=== PATIENT | female | born 1955 | race Caucasian/White ===

== ENCOUNTER → 2022-02-16 13:41 | Outpatient (BNVA) | payer MEDICARE, SELFPAY | PROVIDERS: PCP Student in an Organized Health Care Education/Training Program; Visit Provider Dietitian, Registered | DX: R63.0 Anorexia (principal) | CPT/HCPCS: 97802 ==

== ENCOUNTER → 2022-04-06 14:02 | Outpatient (BNVA) | payer MEDICARE, SELFPAY | PROVIDERS: PCP Student in an Organized Health Care Education/Training Program; Visit Provider Dietitian, Registered | DX: R63.0 Anorexia (principal) | CPT/HCPCS: 97803 ==

== ENCOUNTER → 2022-05-09 14:16 | Outpatient (BNVA) | payer MEDICARE, SELFPAY | PROVIDERS: PCP Student in an Organized Health Care Education/Training Program; Visit Provider Dietitian, Registered | DX: R63.0 Anorexia (principal) | CPT/HCPCS: 97803 ==

== ENCOUNTER 2022-08-15 14:12 | Outpatient (AMB) | payer MEDICARE, SELFPAY ==
--- NOTE | 2022-08-15 14:27 | A.OFFVIS_ITS ---
Intake VS Expanded 08/15/22 14:53 Comment refused to get weighted Intake Visit Reasons: monitor wt HPI Nutrition Presentation Details Pt presents for MNT f/u for poor appetite. Pt admits to having long hx of disordered eating pattern complicated by hx of IBS. Pt reports often skipping meals which further contributes to pain in her stomach. Pt reports following up with GI and having pending appt with primary care physician tomorrow. Pt reports having tried gluten free and lactose free sources of foods which she reports she was able to tolerate well in the past. Pt reports feeling nervous about trying foods due to concerns of stomach pain. She brings various empty bottles of nutritional supplements (Ensure plus, high protein shakes , ranging from 190-350 calories ). Pt reports having none to one a day . Pt reports she was referred to mental health counselor and is awaiting an appointment. Pt refused to get weighed today. Pt has multiple questions regarding medications for anxiety and therefore was advised to discuss those questions with a medical doctor. Pt reported having an appt tomorrow with PCP. Most Recent Diabetes Results: No Data to Display Assessment & Plan Assessment & Plan (1) Poor appetite: Code(s): R63.0 - Anorexia Plan Educate Pt on gradually adding nutrient dense foods to the diet ? Pt's set goal (Date: 02/16/22 ): add 1-2 serving of protein at each meal at follow up (Date: 05/09/22 ): met 25% Used wt : 52.1 kg Est kcal as per MSJ: 1243 + 1000 = 2243+1000 (40% carb, 30% fat/prot) Est fluid needs: 1300 -1563 ml/d (25-30 ml/kg bw) Rec fiber: increase to 8-10 g per and gradually increase as tolerated Rec Na: < 2000 mg /d Educate patient on: (R= Reviewed, V = verbalizes understanding N/R= Needs review N/A= not applicable) * Choosing small portions throughout the day, trying a variety of foods * food sources of protein : R, V * adding small meals frequent throughout the day along with fats in the diet for fat soluble vitamin absorption Patient Instructions: Have 6 small meals throughout the day , do not go longer than 3 hours without eating Add 1 tablespoon of coconut oil to your meals twice a day Try a variety of starches (potatoes, rice , gluten free pasta, gluten free cereals, aim at having 2 cups servings at lunch and at dinner see meal plan with no less than the following B: 2 starches, 2 prot, 1 lactose free full fat dairy, 1 fruit , 2 fats snack: 1 starch/fruit, 1 supplement (more than 250 calories) L: 3 starches, 3 protein, 1 dairy or alternative full fat, 2 vegetables, 3 fats snack: 1 starch, 2 protein, 1 fat, 1 fruit D: 3 starches, 3 protein, 1 dairy or alternative full fat, 2 vegetables, 3 fats snack: 2 starches, 1 dairy, 2 fat, 1 fruit Keep hydrated by having diluted juices with water (pear juice, apple juice ) discuss appetite stimulants with your primary care Coding Level of Care Code Nutr Indiv Subseq (00760) Diagnoses Poor appetite R63.0 Time Spent (min) 40
== END 2022-08-15 15:06 | disposition home or self-care (01) ==
LOC: HO.ENCR 14:12
PROVIDERS: PCP Student in an Organized Health Care Education/Training Program; Visit Provider Dietitian, Registered
DX: R63.0 Anorexia (principal)

== ENCOUNTER → 2022-08-15 14:12 | Outpatient (BNVA) | payer MEDICARE, SELFPAY | PROVIDERS: PCP Student in an Organized Health Care Education/Training Program; Visit Provider Dietitian, Registered | DX: R63.0 Anorexia (principal); Z71.3 Dietary counseling and surveillance | CPT/HCPCS: 97803 ==

== ENCOUNTER → 2023-02-16 12:30 | Outpatient (AMB) | payer MEDICARE, SELFPAY ==
--- NOTE | 2023-02-16 12:38 | MHC.AMNUTRGE ---
Intake VS Expanded 02/16/23 12:46 02/16/23 13:10 Height 5 ft 4 in 5 ft 4 in Weight 115 lb 1.301 oz 107 lb 9.369 oz BMI 19.8 18.5 Intake Visit Reasons: wt/LVM HPI Nutrition Presentation Details Pt presents for MNT f/u for poor appetite The Pt brings empty boxes of foods to discuss. Pt reports having a new appointment with a new examiner rating clerk, Pt reports having esophageal dysmotility. Pt acknowledges that she is abstaining from a lot of foods due to concerns of stomach pain, then reports the stomach pain goes away quickly but she continues to be concerned. Pt reports having appointment with therapies regarding anxiety Pt reports she has new appointment with a new examiner rating clerk Most Recent Diabetes Results: No Data to Display Assessment & Plan Assessment & Plan (1) Poor appetite: Comment: PCP: RECOMMEND Prescribing Ensure Complete supplement 2 a day to have in between meals to prevent further weight loss Code(s): R63.0 - Anorexia Plan Educate Pt on gradually adding nutrient dense foods to the diet ? Pt's set goal (Date: 02/16/22 ): add 1-2 serving of protein at each meal at follow up (Date: 05/09/22 ): met 25% 02/16/2023 -not met Used wt : 52.1 kg (05/2022 ) 49 kg (02/2023) Est kcal as per MSJ: 1243 + 1000 = 2243+1000 (40% carb, 30% fat/prot) Est fluid needs: 1300 -1563 ml/d (25-30 ml/kg bw) Rec fiber: increase to 8-10 g per and gradually increase as tolerated Rec Na: < 2000 mg /d Educate patient on: (R= Reviewed, V = verbalizes understanding N/R= Needs review N/A= not applicable) Choosing small portions throughout the day, trying a variety of foods food sources of protein : R, V adding small meals frequent throughout the day along with fats in the diet for fat soluble vitamin absorption : R, V Choose soft foods (cereals, hot cereals, ground chicken/scrambled eggs, tofu, yogurts, rice soup, polenta , nutritional supplements, ground foods) Patient Instructions: Have 6 meals a day Including a variety of soft foods (cereals/hot or cold with milk of choice , ground poultry/lean beef/scrambled eggs, pancakes made with egg, waffles with syrup, rice chicken soup , mashed potato/peas/chicken, shepherds pie, Choose soft foods ,easy to swallow HAve water with juice added or gatorate or vitamin water - fluids with calories to prevent weight loss Choose full fat yogurt Have 1 ensure complete twice a day in between meals- coupons provided Coding Level of Care Code Nutr Indiv Subseq (03450) Diagnoses Poor appetite R63.0 Time Spent (min) 30
[2023-02-16 12:46] VITALS: BMI 19.8
[2023-02-16 13:10] VITALS: BMI 18.5
== END ==
PROVIDERS: PCP Student in an Organized Health Care Education/Training Program; Visit Provider Dietitian, Registered
DX: R63.0 Anorexia (principal)

== ENCOUNTER → 2023-02-16 12:30 | Outpatient (BNVA) | payer MEDICARE, SELFPAY | PROVIDERS: PCP Student in an Organized Health Care Education/Training Program; Visit Provider Dietitian, Registered | DX: R63.0 Anorexia (principal) | CPT/HCPCS: 97803 ==

== ENCOUNTER 2024-09-30 14:03 | Outpatient (AMB) | payer MEDICARE, SELFPAY ==
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
--- OUTSIDE RECORDS SUMMARY | 2024-09-30 15:26 | XMS_ITS | Encounter Summary ---
Author Organization [facility]ly [facility] Address [address] [place] [address] Care Team Providers Care Gas Meter Reader Name Role Phone Alicia Rayo DO Primary Care Provider Unavaila Lin Crowe MD Primary Care Provider [phone] Kandis Lan MD Unavailable Tim Newton DO Unavailable Unavailable Reason for Visit * Reason Onset Date Comments Provider Call Back 05/12/2023 Encounter Details Date Type Department Care Team Description 05/12/2023 Telephone Gastroenterology - [address] [place] [address] Francis Kwong PA-C Provider Call Back Social History Tobacco Use Types Packs/Day Years Used Date Smoking Tobacco: Former Cigarettes 0.5 1 03/05/1970 - 02/06/1990 Smokeless Tobacco: Former Alcohol Use Standard Drinks/Week Comments Not Currently 0 (1 standard drink = 0.6 oz pur e alcohol) rarely since 2014 Alcohol Habits Answer Date Recorded How often do you have a drink containing alcohol ? Monthly or less 03/27/2020 How many drinks containing a lcohol do you have on a typical day when you are drinking? Not asked How often do you have six or more drinks on one occasion? Not asked Sex Assigned at Date Recorded Not on file Job Start Date Occupation Industry Not on file Not on file Not on file documented as of this encounter Miscellaneous Notes * Telephone Encounter - Imani De Leon - 05/15/2023 9:49 AM EDT Left a detailed message regarding repeat barium swallow. Left our phone number for patient to call us back with any questions. * Telephone Encounter - Francis Kwong PA-C - 05/12/2023 2:59 PM EDT Another barium swallow would not be helpful and the insurance would not pay for it. She is having some issues with swallowing so she does have to follow the directions in regards to esophageal dysmotility by taking smaller bites of food, chew food more thoroughly and take sips of water in between bites of food. Please let her know that we could order Mylanta to see if that will help soothe her esophagus but another barium swallow would not be helpful * Telephone Encounter - Imani De Leon - 05/12/2023 2:37 PM EDT Patient is having pain in her esophagus. Patient wants to know if we need to order another barium swallow since the one from 01/2023 states she has esophageal dysmotility. I did say probably not and advised her to take smaller bites of food,take sips of water in between, and chew more thoroughly. but she asked me to send a message regardless. * Telephone Encounter - Debbie Garcia - 05/12/2023 12:21 PM EDT Patient calling in stating she feels a pain that comes and goes in her esophagus. She is questioning if she should have another EGD or barrium swallow schedule. Please advise documented in this encounter Plan of Treatment Not on file documented as of this encounter Visit Diagnoses Not on filedocumented in this encounter Care Teams Gas Meter Reader Relationship Specialty Start Date End Date Alicia Rayo DO PCP - General Internal Medicine 06/04/21 07/23/23 Lin Eubanks MD [address] [place] [id number] PCP - General Internal Medicine 07/24/23 Kandis Lan MD [address] [place] [address] Endocrinology 11/07/23 Tim Newton DO [address] [place] [address] Referring Physician Physiatry 11/07/23 francis kwong Specialist Gastroenterology 11/07/23 [facility] urology Specialist Urology 11/07/23 documented as of this encounter
--- OUTSIDE RECORDS SUMMARY | 2024-09-30 15:26 | XMS_ITS | Encounter Summary ---
Author Organization [facility] Address [address] [place] [address] Care Team Providers Care Sap Basis Name Role Phone Alicia Rayo DO Primary Care Provider Unavaila Lin Crowe MD Primary Care Provider Kandis Lan MD Unavailable Tim Newton DO Unavailable Unavailable Encounter Details Date Type Department Care Team Description 03/02/2023 Telephone Gastroenterology - [address] [place] [address] Francis Kwong PA-C Social History Tobacco Use Types Packs/Day Years [...] Telephone Encounter - Imani De Leon - 03/03/2023 9:22 AM EST Faxed referral, demo,and notes to [facility] [place] administrator [phone]. * Telephone Encounter - Francis Kwong PA-C - 03/02/2023 5:50 PM EST Patient to be referred back to nutrition at [facility] for failure to thrive documented in this encounter Plan of Treatment Not on file documented as of this encounter Visit Diagnoses Not on filedocumented in this encounter Care Teams Sap Basis Relationship Specialty Start Date End Date Alicia Rayo DO PCP - General Internal Medicine 06/04/21 07/23/23 Lin Eubanks MD [address] [place] [address] PCP - General Internal Medicine 07/24/23 Kandis Lan MD [address] [place] [address] Endocrinology 11/07/23 Tim Newton DO [address] [place] [address] Referring Physician Physiatry 11/07/23 francis kwong Specialist Gastroenterology 11/07/23 [facility] urology Specialist Urology 11/07/23 documented as of this encounter
--- OUTSIDE RECORDS SUMMARY | 2024-09-30 15:26 | XMS_ITS ---
Author Name [facility] Organization Unknown Care Team Organization Name Specialty Phone Email Start Date End Da te [facility] Samantha Mina Primary Care 07/15/2022 09/25/19 [facility] Chetna Coats Primary Care 12/14/2021 09/25/2023
--- OUTSIDE RECORDS SUMMARY | 2024-09-30 15:26 | XMS_ITS | Encounter Summary ---
Author Organization [facility] Address [address] [place] [address] Care Team Providers Care Vinegar Maker Name Role Phone Alicia Rayo DO Primary Care Provider Unavaila ble Lin Eubanks MD Primary Care Provider [phone] Kandis Lan MD Unavailable Tim Newton DO Unavailable Unavailable Reason for Visit * Reason Onset Date Comments medication problems 06/26/2023 Encounter Details Date Type Department Care Team Description 06/26/2023 Telephone Adult Medicine - [address] [address] Alicia Rayo DO medication problems Social History Tobacco Use Types Packs/Day Years [...] on file documented as of this encounter Plan of Treatment Not on file documented as of this encounter Visit Diagnoses Not on filedocumented in this encounter Care Teams Vinegar Maker Relationship Specialty Start Date End Date Alicia Rayo DO PCP - General Internal Medicine 06/04/21 07/23/23 Lin Eubanks MD [address] [place] [address] PCP - General Internal Medicine 07/24/23 Kandis Lan MD [address] [place] [address] Endocrinology 11/07/23 Tim Newton DO [address] [place] [address] Referring Physician Physiatry 11/07/23 víctor heard Specialist Gastroenterology 11/07/23 [facility] urology Specialist Urology 11/07/23 documented as of this encounter
--- OUTSIDE RECORDS SUMMARY | 2024-09-30 15:26 | XMS_ITS | Encounter Summary ---
Author Organization [facility] Address [address] [place] [address] Care Team Providers Care Consultant Dietitian Name Role Phone Alicia Rayo DO Primary Care Provider Unavaila Lin Crowe MD Primary Care Provider [phone] Kandis Lan MD Unavailable Tim Newton DO Unavailable Unavailable Reason for Visit * Reason Onset Date Comments APPOINTMENT 06/23/2021 Encounter Details Date Type Department Care Team Description 06/23/2021 Telephone OBGYN - [place] [address] [place] [address] Familia Johnson DO APPOINTMENT Social History Tobacco Use Types Packs/Day Years Used Date Smoking Tobacco: Former Cigarettes 0.5 1 03/05/1970 - 02/06/1990 Smokeless Tobacco: Former Alcohol Use Standard Drinks/Week Comments Yes 0 (1 standard drink = 0.6 oz pur e alcohol) rarely Alcohol Habits Answer Date Recorded How often [...] file Not on file Not on file COVID-19 Exposure Response Date Recorded In the last 10 days, have tamy wallace been in contact with someone who was confirmed or suspected to have Coronavirus/COVID-19? No / Unsure 06/18/2021 3:36 PM EDT documented as of this encounter Miscellaneous Notes * Telephone Encounter - Mable Maza - 06/23/2021 9:13 AM EDT Lmom for pt to call back - Dr Johnson sent a message that her appt may be changed to a telehealthif the pt doesn't wish to come into the office documented in this encounter Plan of Treatment Not on file documented as of this encounter Visit Diagnoses Not on filedocumented in this encounter Care Teams Consultant Dietitian Relationship Specialty Start Date End Date Alicia Rayo DO PCP - General Internal Medicine 06/04/21 07/23/23 Lin Eubanks MD [address] [place] [address] PCP - General Internal Medicine 07/24/23 Kandis Lan MD [address] [place] [address] Endocrinology 11/07/23 Tim Newton DO [address] [place] [address] Referring Physician Physiatry 11/07/23 víctor heard Specialist Gastroenterology 11/07/23 [facility] urology Specialist Urology 11/07/23 documented as of this encounter
--- OUTSIDE RECORDS SUMMARY | 2024-09-30 15:26 | XMS_ITS | Encounter Summary ---
Author Organization [facility] Address [address] [place] [address] Care Team Providers Care Naprapath Name Role Phone Bobbi Walton MD Primary Care Provider Unavaila Chetna Ortiz MD Primary Care Provide r Unavailable Alicia Rayo DO Primary Care Provider Unavaila Lin Crowe MD Primary Care Provider + [phone] Kandis Lan MD Unavailable Tmi Newton DO Unavailable Unavailable Encounter Details Date Type Department Care Team Description 05/29/2018 [facility] [address] [place] [id number] Abstract, Provider Social History Tobacco Use Types Packs/Day Years Used Date Smoking Tobacco: Former Cigarettes 0.5 1 03/05/1970 - 02/06/1990 Smokeless Tobacco: Former Alcohol Use Standard Drinks/Week Comments No 0 (1 standard drink = 0.6 oz pur e alcohol) Alcohol Habits Answer Date Recorded How often [...] on file documented as of this encounter Procedures Procedure Name Priority Date/Time Associated Diagnosis Comments OUTSIDE EKG Routine 05/29/2018 documented in this encounter Results * OUTSIDE EKG (05/29/2018) Provider Default CARDIOLOGY documented in this encounter Visit Diagnoses Not on filedocumented in this encounter Care Teams Naprapath Relationship Specialty Start Date End Date Bobbi Walton MD PCP - General Internal Medicine 12/19/14 05/05/20 Chetna Coats MD PCP - General Internal Medicine 05/06/20 06/03/21 Alicia Rayo DO PCP - General Internal Medicine 06/04/21 07/23/23 Lin Eubanks MD [address] [place] [address] PCP - General Internal Medicine 07/24/23 Kandis Lan MD [address] [place] [address] Endocrinology 11/07/23 Tim Newton DO [address] [place] [address] Referring Physician Physiatry 11/07/23 víctor heard Specialist Gastroenterology 11/07/23 [facility] urology Specialist Urology 11/07/23 documented as of this encounter
--- OUTSIDE RECORDS SUMMARY | 2024-09-30 15:26 | XMS_ITS | Encounter Summary ---
Author Organization [facility] Address [address] [place] [address] Care Team Providers Care Nursing Professor Name Role Phone Bobbi Walton MD Primary Care Provider Unavaila Chetna Ortiz MD Primary Care Provide r Unavailable Alicia Rayo DO Primary Care Provider Unavaila Lin Crowe MD Primary Care Provider + [phone] Kandis Lan MD Unavailable Tim Newton DO Unavailable Unavailable Encounter Details Date Type Department Care Team Description 08/07/2018 Orders Only Medical Records [address] [place] [id number] Bobbi Walton MD Social History Tobacco Use Types Packs/Day Years [...] Name Priority Date/Time Associated Diagnosis Comments OUTSIDE LOOP RECORDER Routine 07/01/2018 documented in this encounter Results * OUTSIDE LOOP RECORDER (07/01/2018) Bobbi Walton MD CARDIOLOGY documented in this encounter Visit Diagnoses Not on filedocumented in this encounter Care Teams Nursing Professor Relationship Specialty Start Date End Date Bobbi Walton MD PCP - General Internal Medicine 12/19/14 05/05/20 Chetna Coats MD PCP - General Internal Medicine 05/06/20 06/03/21 Alicia Rayo DO PCP - General Internal Medicine 06/04/21 07/23/23 Lin Eubanks MD [address] [place] [id number] PCP - General Internal Medicine 07/24/23 Kandis Lan MD [address] [place] [address] Endocrinology 11/07/23 Tim Newton DO [address] [place] [address] Referring Physician Physiatry 11/07/23 víctor heard Specialist Gastroenterology 11/07/23 [facility] urology Specialist Urology 11/07/23 documented as of this encounter
--- OUTSIDE RECORDS SUMMARY | 2024-09-30 15:26 | XMS_ITS | Encounter Summary ---
Author Organization [facility] Address [address] [place] [address] Care Team Providers Care Hide Stretcher Hand Name Role Phone Bobbi Walton MD Primary Care Provider Unavaila Chetna Ortiz MD Primary Care Provide r Unavailable Alicia Rayo DO Primary Care Provider Unavaila Lin Crowe MD Primary Care Provider + [phone] Kandis Lan MD Unavailable Tim Newton DO Unavailable Unavailable Encounter Details Date Type Department Care Team Description 06/20/2018 Orders Only Medical Records [address] [place] [id number] Bobbi Walton MD Social History Tobacco Use [...] Name Priority Date/Time Associated Diagnosis Comments OUTSIDE STRESS TEST Routine 06/12/2018 documented in this encounter Results * OUTSIDE STRESS TEST (06/12/2018) Bobbi Walton MD CARDIOLOGY documented in this encounter Visit Diagnoses Not on filedocumented in this encounter Care Teams Hide Stretcher Hand Relationship Specialty Start Date End Date Bobbi Walton MD PCP - General Internal Medicine 12/19/14 05/05/20 Chetna Coats MD PCP - General Internal Medicine 05/06/20 06/03/21 Alicia Rayo DO PCP - General Internal Medicine 06/04/21 07/23/23 Lin Eubanks MD [address] [place] [id number] PCP - General Internal Medicine 07/24/23 Kandis Lan MD [address] [place] [address] Endocrinology 11/07/23 Tim Newton DO [address] [place] [address] Referring Physician Physiatry 11/07/23 víctor heard Specialist Gastroenterology 11/07/23 [facility] urology Specialist Urology 11/07/23 documented as of this encounter
--- OUTSIDE RECORDS SUMMARY | 2024-09-30 15:26 | XMS_ITS | Encounter Summary ---
Author Organization [facility] Address [address] [place] [address] Care Team Providers Care Singe Winder Name Role Phone Alicia Rayo DO Primary Care Provider Unavaila Lin Crowe MD Primary Care Provider Kandis Lan MD Unavailable Tim Newton DO Unavailable Unavailable Encounter Details Date Type Department Care Team Description 02/16/2023 Regulatory Product Manager Report Medical Records [address] [place] [address] Amanda Lucio [address] [place] [address] Social History Tobacco Use Types Packs/Day Years [...] on filedocumented in this encounter Care Teams Singe Winder Relationship Specialty Start Date End Date Alicia Rayo DO PCP - General Internal Medicine 06/04/21 07/23/23 Lin Eubanks MD [address] [place] [address] PCP - General Internal Medicine 07/24/23 Kandis Lan MD [address] [place] [address] Endocrinology 11/07/23 Tim Newton DO [address] [place] [address] Referring Physician Physiatry 11/07/23 víctor heard Specialist Gastroenterology 11/07/23 [facility] urology Specialist Urology 11/07/23 documented as of this encounter
--- OUTSIDE RECORDS SUMMARY | 2024-09-30 15:26 | XMS_ITS | Encounter Summary ---
Author Organization [facility] Address [address] [place] [address] Care Team Providers Care Hazardous Materials Tanker Driver Name Role Phone Bobbi Walton MD Primary Care Provider Unavaila Chetna Ortiz MD Primary Care Provide r Unavailable Alicia Rayo DO Primary Care Provider Unavaila Lin Crowe MD Primary Care Provider + [phone] Kandis Lan MD Unavailable Tim Newton DO Unavailable Unavailable Reason for Visit * Reason Onset Date Comments Prior Authorization 02/23/2017 ESOMEPRAZOLE 40 MG Encounter Details Date Type Department Care Team Description 02/23/2017 [facility] [address] [id number] Bobbi Walton MD Prior Authorization (ESOMEPRAZOLE 40 MG) Social History Tobacco Use Types Packs/Day Years Used Date Smoking Tobacco: Former Cigarettes 0.5 1 03/05/1970 - 02/06/1990 Smokeless Tobacco: Never Alcohol Use Standard Drinks/Week Comments No 0 [...] encounter Miscellaneous Notes * Telephone Encounter - Azeem Conway MD - 03/14/2017 10:22 AM EST I spoke with her just now. Approximate time of call completion 10:22 hours. Endoscopy yesterday wasnegative. No esophagitis or ulcers. She has nonulcer dyspepsia. She's been under stress recently, this tends to cause an exacerbation of symptoms. We discussed this. She will avoid tomato sauces and any spicy foods that tend to cause problems. She has follow-up arranged with me in the office in about 6 weeks. * Telephone Encounter - Rosie Cedillo R.N. - 03/14/2017 8:[address] Humaira gay pt would like a call from you regarding her diet. She wants to know what you recommend for her to eat. She states an acid stomach. She doesn't want to wait until the 20th to hear the results of test. She will be at dental appt from 12:30-4. * Telephone Encounter - Susu Sanchez M.A. - 02/23/2017 2:25 PM EST In office visit notes on 02/22/17 At this point the patient will discontinue the Nexium, so far there is no indication for chronic PPI treatment. We will get her on the schedule routinely for an upper GI endoscopy for further evaluation. ? Azeem Conway MD * Telephone Encounter - Bailey Lopez - 02/23/2017 1:16 PM EST Pre Authorization for Medication-do not complete and send this encounter unless you have the fax from the pharmacy. Is this a Cover My Meds request: [place] Base of Medication : ESOMEPRAZOLE Dose of Medication : 40 MG CAP How does patient take this med? TAKE 1 CAP BY MOUTH DAILY What Pharmacy did the fax come from: [facility] Pharmacy fax #: [phone] [employer] Information from fax: What Prescription Plan does the patient have? BIN/PCN if applicable: Cardholder ID:Payor: Person Code: Relationship Code: Help desk phone: PRIOR AUTH FAXED TO PRIOR AUTH. documented in this encounter Plan of Treatment Not on file documented as of this encounter Visit Diagnoses Not on filedocumented in this encounter Care Teams Hazardous Materials Tanker Driver Relationship Specialty Start Date End Date Bobbi Walton MD PCP - General Internal Medicine 12/19/14 05/05/20 Chetna Coats MD PCP - General Internal Medicine 05/06/20 06/03/21 Alicia Rayo DO PCP - General Internal Medicine 06/04/21 07/23/23 Lin Eubanks MD [address] [place] [id number] PCP - General Internal Medicine 07/24/23 Kandis Lan MD [address] [place] [address] Endocrinology 11/07/23 Tim Newton DO [address] [place] [address] Referring Physician Physiatry 11/07/23 víctor heard Specialist Gastroenterology 11/07/23 [facility] urology Specialist Urology 11/07/23 documented as of this encounter
--- OUTSIDE RECORDS SUMMARY | 2024-09-30 15:26 | XMS_ITS | Clinical Summary ---
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 History of hip or vertebral fracture. T-score = -2.5 (DXA) at the femoral neck, total hip, or spine, after appropriate evaluation to exclude secondary causes. Low bone mass (T-score between -1.0 and -2.5 at the femoral neck or spine) AND a 10-year probability of a hip fracture = 3% OR a 10-year probability of a major osteoporosis-related fracture = 20% based on the [place]-adapted WHO algorithm Please note that all treatment decisions require clinical judgment and consideration of individual patient factors, including patient preferences, co-morbidities, previous drug use, risk factors not captured in the FRAX model (e.g., frailty, falls, vitamin D deficiency, increased bone turnover, interval significant decline in bone density) and possible under- or over-estimation of fracture risk by FRAX. Optional alternative screening schedule based on kenyatta Grady., [facility] February 24, 2011 for patients with osteopenia (based on hip BMD T-score) is as follows: * advanced osteopenia (T scores -2.00 to -2.49), BMD testing every year * moderate osteopenia (T scores -1.50 to -1.99), BMD testing every 5 years mild osteopenia or normal BMD (T scores -1.50 and higher), BMD testing every 15 years -------- FINAL REPORT -------- Dictated By: Ekta Baldwin Dictated Date: 01/23/2024 08:36 ET Assigned Physician: Ekta Baldwin Reviewed and Electronically Signed By: Ekta Baldwin Signed Date: 01/23/2024 08:39 ET Workstation ID: [id number] Transcribed By: Self Edit Transcribed Date: 01/23/2024 08:36 ET Narrative 01/23/2024 8:39 AM EST BONE DENSITY SCAN (DEXA) FINDINGS: Lumbar Spine T-score is -2.7. (SD relative to 20-29 y/o adult) Z-score is -0.5. (SD relative to age matched peers) This is considered osteoporosis by WHO criteria. Left Hip T-score is -2.3. Z-score is -0.4. This is considered osteopenia by WHO criteria. Comparison: When compared with previous examination there is interval decrease in bone density in the lumbosacral spine. Procedure Note Ekta Baldwin MD - 01/23/2024 BONE DENSITY SCAN (DEXA) FINDINGS: Lumbar Spine T-score is -2.7. (SD relative to 20-29 y/o adult) Z-score is -0.5. (SD relative to age matched peers) This is considered osteoporosis by WHO criteria. Left Hip T-score is -2.3. Z-score is -0.4. This is considered osteopenia by WHO criteria. Comparison: When compared with previous examination there is intervaldecrease in bone density in the lumbosacral spine. IMPRESSION: Osteoporosis by WHO criteria. The [facility] Department of Internal Medicinerecommends using National Osteoporosis Foundation (NOF) guidelines intreatment decisions related to osteoporosis. NOF guidelines suggestconsidering treatment for postmenopausal women and men aged 50 or olderpresenting with the following: History of hip or vertebral fracture. T-score = -2.5 (DXA) at the femoral neck, total hip, or spine, afterappropriate evaluation to exclude secondary causes. Low bone mass (T-score between -1.0 and -2.5 at the femoral neck or spine)AND a 10-year probability of a hip fracture = 3% OR a 10-year probabilityof a major osteoporosis-related fracture = 20% based on the [place]-adapted WHOalgorithm Please note that all treatment decisions require clinical judgment andconsideration of individual patient factors, including patientpreferences, co-morbidities, previous drug use, risk factors not capturedin the FRAX model (e.g., frailty, falls, vitamin D deficiency, increasedbone turnover, interval significant decline in bone density) and possibleunder- or over-estimation of fracture risk by FRAX. Optional alternative screening schedule based on anuradha Grady al., NEMJanuary 2011 for patients with osteopenia (based on hip BMD T-score)is as follows: * advanced osteopenia (T scores -2.00 to -2.49), BMD testing every year * moderate osteopenia (T scores -1.50 to -1.99), BMD testing every 5years mild osteopenia or normal BMD (T scores -1.50 and higher), BMD testingevery 15 years -------- FINAL REPORT -------- Dictated By: Ekta Baldwin Dictated Date: 01/23/2024 08:36 ET Assigned Physician: Ekta Baldwin Reviewed and Electronically Signed By: Ekta Baldwin Signed Date: 01/23/2024 08:39 ET Workstation ID: [id number] Transcribed By: Self Edit Transcribed Date: 01/23/2024 08:36 ET Alicia Rayo DO [facility] DXA PROCEDURES Final Result * MG Mammo Digital Screening w Luis Alberto bilat (01/11/2024 3:31 PM EST) Anatomical Region Laterality Modality Breast Bilateral Mammography 01/16/2024 7:18 AM EST Impressions 01/16/2024 7:29 AM EST Stable mammographic appearance of the breasts. No evidence of malignancy is seen. A negative mammogram in the presence of a clinically suspicious palpable abnormality does not preclude the possibility of malignancy or alter the indications for biopsy. BI-RADS: Category 1: Negative RECOMMENDATION(S): 1: Routine screening mammogram BILATERAL in 1 year. Mammo Location: [facility], [address] [place] [address], [id number], . -------- FINAL REPORT -------- Dictated By: Sandra Estrella Dictated Date: 01/16/2024 07:18 ET Assigned Physician: Sandra Estrella Reviewed and Electronically Signed By: Sandra Estrella Signed Date: 01/16/2024 07:29 ET Workstation ID: [id number] Transcribed By: Self Edit Transcribed Date: 01/16/2024 07:18 ET Narrative 01/16/2024 7:29 AM EST EXAM: MAMMO DIGITAL SCREENING W LUIS ALBERTO BILAT EXAM DATE: 01/11/2024 3:09 PM HISTORY: Breast cancer screen, avg risk, asymptomatic (Age => 40y) COMPARISON: Mammograms dating back to 12/29/2020 with most recent of 01/09/2023. TECHNIQUE: Bilateral digital breast tomosynthesis was performed in the CC and MLO projections. Computer aided detection with iCAD ProFound AI 3D 3.1 was employed. TISSUE DENSITY: c. The breasts are heterogeneously dense. FINDINGS: No suspicious masses, grouped microcalcifications, or areas of architectural distortion are seen. The skin and vascularity are unremarkable. Procedure Note Sandra Estrella MD - 01/16/2024 EXAM: MAMMO DIGITAL SCREENING W LUIS ALBERTO BILAT EXAM DATE: 01/11/2024 3:09 PM HISTORY: Breast cancer screen, avg risk, asymptomatic (Age => 40y) COMPARISON: Mammograms dating back to 12/29/2020 with most recent of01/09/2023. TECHNIQUE: Bilateral digital breast tomosynthesis was performed in the CCand MLO projections. Computer aided detection with iCAD ProFound AI 3D 3.1was employed. TISSUE DENSITY: c. The breasts are heterogeneously dense. FINDINGS: No suspicious masses, grouped microcalcifications, or areas ofarchitectural distortion are seen. The skin and vascularity areunremarkable. IMPRESSION: Stable mammographic appearance of the breasts. No evidence of malignancyis seen. A negative mammogram in the presence of a clinically suspicious palpableabnormality does not preclude the possibility of malignancy or alter theindications for biopsy. BI-RADS: Category 1: Negative RECOMMENDATION(S): 1: Routine screening mammogram BILATERAL in 1 year. Mammo Location: [facility], [address] [place] [address], [address], . -------- FINAL REPORT -------- Dictated By: Sandra Estrella Dictated Date: 01/16/2024 07:18 ET Assigned Physician: Sandra Estrella Reviewed and Electronically Signed By: Sandra Estrella Signed Date: 01/16/2024 07:29 ET Workstation ID: [id number] Transcribed By: Self Edit Transcribed Date: 01/16/2024 07:18 ET Lin Eubanks MD IMG BI PROCEDURES Lurdes l Result * Depression Screening (11/07/2023) Pathologist [facility] Depression Screening Abstracted Historical Provider HEALTH MAINTENANCE Final Result * Falls Risk Assessment (09/21/2023) [facility] Falls Risk Assessment Abstracted Result [facility] Provider HEALTH MAINTENANCE Final Result * Colonoscopy (10/18/2016) Pathologist [facility] Colonoscopy No Interpretation , Abstracted Anatomical Region Laterality Modality Other Historical Provider HEALTH MAINTENANCE Final Result * Hepatitis C Screening (06/01/2016) Pathologist [facility] Hepatitis C Screening Abstracted [facility] Provider HEALTH MAINTENANCE Final Result from Last 3 Months or Most Recently Relevant to Health Maintenance Insurance [employer] MED[employer]ARE [employer]VANTAGE [employer] MED[employer]ARE [employer]VANTAGE Care Teams Tetryl Screen Operator Relationship Specialty Start Date End Date Lin Eubanks MD [address] [place] [address] PCP - General Internal Medicine 12/11/23
--- OUTSIDE RECORDS SUMMARY | 2024-09-30 15:26 | XMS_ITS | Encounter Summary ---
Author Organization [facility] Address [address] [place] [address] Care Team Providers Care Impact Hammer Operator Name Role Phone Alicia Rayo DO Primary Care Provider Unavaila Lin Crowe MD Primary Care Provider [phone] Kandis Lan MD Unavailable Tim Newton DO Unavailable Unavailable Encounter Details Date Type Department Care Team Description 07/21/2021 Orders Only Medical Records [address] [place] [address] Carmen Harmon NP Social History Tobacco Use Types Packs/Day Years [...] suspected to have Coronavirus/COVID-19? No / Unsure 07/18/2021 1:07 PM EDT documented as of this encounter Plan of Treatment Not on file documented as of this encounter Procedures Procedure Name Priority Date/Time Associated Diagnosis Comments OUTSIDE LAB Routine 07/18/2021 documented in this encounter Results * OUTSIDE LAB (07/18/2021) Carmen Harmon NP LAB documented in this encounter Visit Diagnoses Not on filedocumented in this encounter Care Teams Impact Hammer Operator Relationship Specialty Start Date End Date Alicia Rayo DO PCP - General Internal Medicine 06/04/21 07/23/23 Lin Eubanks MD [address] [place] [address] PCP - General Internal Medicine 07/24/23 Kandis Lan MD [address] [place] [address] Endocrinology 11/07/23 Tim Newton DO [address] [place] [address] Referring Physician Physiatry 11/07/23 víctor heard Specialist Gastroenterology 11/07/23 [facility] urology Specialist Urology 11/07/23 documented as of this encounter
--- OUTSIDE RECORDS SUMMARY | 2024-09-30 15:26 | XMS_ITS | Encounter Summary ---
Author Organization [facility] Address [address] [place] [address] Care Team Providers Care Chief Wellness Officer Name Role Phone Alicia Rayo DO Primary Care Provider Unavaila Lin Crowe MD Primary Care Provider [phone] Kandis Lan MD Unavailable Tim Newton DO Unavailable Unavailable Reason for Visit * Reason Onset Date Comments Provider Call Back 12/05/2022 Encounter Details Date Type Department Care Team Description 12/05/2022 Telephone Gastroenterology [address] [place] [address] Francis Kwong PA-C Provider Call [...] Recorded In the last 10 days, have yo u been in contact with someone who was confirmed or suspected to have Coronavirus/COVID-19? No / Unsure 12/08/2022 1:20 PM EDT documented as of this encounter Miscellaneous Notes * Telephone Encounter - Adelia Waller - 12/21/2022 9:05 AM EST Patient calling, worried about drinks for Barium swallow making her not feel well. Requesting call back to discuss. * Telephone Encounter - Imani De Leon - 12/09/2022 2:04 PM EDT Booked Barium Swallow at [address] [place] [address] for patient on 02/02 at 9am w/ arrival at 8:40am. Called the patient to notify of appointment details, including nothing to eat/drink after midnight. I also mailed an appointment letter. Order has been faxed to [phone]. * Telephone Encounter - Francis Kwong PA-C - 12/08/2022 3:05 PM EDT Patient is having issues with swallowing and is going to be scheduled for barium swallow. * Telephone Encounter - Imani De Leon - 12/08/2022 2:32 PM EDT Please advise, thank you. * Telephone Encounter - Imani De Leon - 12/07/2022 11:14 AM EDT Patient does want the barium swallow, also she is taking the [place] that Cam told her to use. * Telephone Encounter - Imani De Leon - 12/07/2022 10:11 AM EDT Spoke to patient and advised. Call dropped and retried to call her but went to voicemail. * Telephone Encounter - Francis Kwong PA-C - 12/06/2022 3:31 PM EDT Please let her know that we can order Mylanta to see if that will help with the issues in her esophagus. If she is getting full stuck, then we need to order a barium swallow. * Telephone Encounter - Jose Vences M.A. - 12/06/2022 2:37 PM EDT Patient calling in for complaint of sharp pain in esophagus x3 days. Pt states she has been having an ongoing issue with esophagus. Speech therapy, etc... Please review and advise. Call dropped after30 minutes. Please review and advise.... Jose GAGNON * Telephone Encounter - Adelia Waller - 12/05/2022 8:54 AM EDT Patient states she is feeling different type of pain in esophagus. Would like call back. documented in this encounter Plan of Treatment Not on file documented as of this encounter Results * RADIOLOGIC EXAM ESOPHAGUS SINGLE CONTRAST STUDY (02/02/2023) Francis Kwong PA-C RADIOLOGY documented in this encounter Visit Diagnoses Diagnosis Dysphagia, unspecified type- Primary documented in this encounter Care Teams Chief Wellness Officer Relationship Specialty Start Date End Date Alicia Rayo DO PCP - General Internal Medicine 06/04/21 07/23/23 Lin Eubanks MD [address] [place] [address] PCP - General Internal Medicine 07/24/23 Kandis Lan MD [address] [place] [address] Endocrinology 11/07/23 Tim Newton DO [address] [place] [address] Referring Physician Physiatry 11/07/23 francis kwong Specialist Gastroenterology 11/07/23 [facility] urology Specialist Urology 11/07/23 documented as of this encounter
--- OUTSIDE RECORDS SUMMARY | 2024-09-30 15:26 | XMS_ITS | Encounter Summary ---
Author Organization [facility] Address [address] [place] [address] Care Team Providers Care Public Health Technologist Name Role Phone Bobbi Walton MD Primary Care Provider Unavaila Chetna Ortiz MD Primary Care Provide r Unavailable Alicia Rayo DO Primary Care Provider Unavaila Lin Crowe MD Primary Care Provider [phone] Kandis Lan MD Unavailable Tim Newton DO Unavailable Unavailable Reason for Visit * Reason Onset Date Comments medication problems 02/26/2019 famotidine ( PEPCID) 20 MG tablet Encounter Details Date Type Department Care Team Description 02/26/2019 Telephone Adult Medicine - [address] [address] Bobbi Walton MD medication problems (famotidine (PEPCID) 20 MG tablet) Social History Tobacco Use Types Packs/Day Years [...] encounter Miscellaneous Notes * Telephone Encounter - Kaylee GreggPJenniferNJennifer - 02/27/2019 8:38 AM EST Memory is full * Telephone Encounter - Bobbi Walton MD - 02/27/2019 8:33 AM EST Have patient buy OTC * Telephone Encounter - Kaylee Silva L.P.NJennifer - 02/26/2019 12:06 PM EST Please advise * Telephone Encounter - Darling Mo - 02/26/2019 10:08 AM EST Who is calling? A pharmacist: Pharmacy: [facility] Pharmacist Name: [facility] Pharmacy Name of the medication famotidine (PEPCID) 20 MG tablet What is the specific problem or interaction? PRODUCT IS ON BACK ORDER . BOTH 20 MG AND 40 MG . TRY ALTERNATIVE, OTHERWISE OTC PURCHASE If the patient is having a problem with taking the med - how long has the problem been going on? N/A documented in this encounter Plan of Treatment Not on file documented as of this encounter Visit Diagnoses Not on filedocumented in this encounter Care Teams Public Health Technologist Relationship Specialty Start Date End Date Bobbi Walton MD PCP - General Internal Medicine 12/19/14 05/05/20 Chetna Coats MD PCP - General Internal Medicine 05/06/20 06/03/21 Alicia Rayo DO PCP - General Internal Medicine 06/04/21 07/23/23 Lin Eubanks MD [facility] [place] [address] PCP - General Internal Medicine 07/24/23 Kandis Lan MD [address] [place] [address] Endocrinology 11/07/23 Tim Newton DO [address] [place] [address] Referring Physician Physiatry 11/07/23 víctor heard Specialist Gastroenterology 11/07/23 [facility] urology Specialist Urology 11/07/23 documented as of this encounter
--- OUTSIDE RECORDS SUMMARY | 2024-09-30 15:26 | XMS_ITS | Encounter Summary ---
Author Organization [facility] Address [address] [place] [address] Care Team Providers Care Slot Operations Director Name Role Phone Alicia Rayo DO Primary Care Provider Unavaila Lin Crowe MD Primary Care Provider Kandis Lan MD Unavailable Tim Newton DO Unavailable Unavailable Encounter Details Date Type Department Care Team Description 10/07/2021 Telephone [facility] [address] [phone] Reanna Tovar MD [address] [place] [phone] Social History Tobacco Use Types Packs/Day Years [...] suspected to have Coronavirus/COVID-19? No / Unsure 10/05/2021 1:13 PM EDT documented as of this encounter Miscellaneous Notes * Telephone Encounter - Reanna Tovar MD - 10/07/2021 4:25 PM EDT I spoke to the patient She had complained yesterday that the nasal oxygen had been irritating. It does dry out the nasal passages so she may just be having some reactive rhinitis. It should go away. Reassurances were given. * Telephone Encounter - Daphney Mireille - 10/07/2021 10:36 AM EDT Casey Washington called in and is stating ever since her surgery yesterday her nose has been very runny and leaking and she wants to know if that is normal after surgery . She would like a call back please [phone] documented in this encounter Plan of Treatment Not on file documented as of this encounter Visit Diagnoses Not on filedocumented in this encounter Care Teams Slot Operations Director Relationship Specialty Start Date End Date Alicia Rayo DO PCP - General Internal Medicine 06/04/21 07/23/23 Lin Eubanks MD [address] [place] [address] PCP - General Internal Medicine 07/24/23 Kandis Lan MD [address] [place] [address] Endocrinology 11/07/23 Tim Newton DO [address] [place] [address] Referring Physician Physiatry 11/07/23 víctor heard Specialist Gastroenterology 11/07/23 [facility] urology Specialist Urology 11/07/23 documented as of this encounter
--- OUTSIDE RECORDS SUMMARY | 2024-09-30 15:26 | XMS_ITS | Encounter Summary ---
Author Organization [facility] Address [address] [place] [address] Care Team Providers Care Caregiver Services Home Name Role Phone Alicia Rayo DO Primary Care Provider Unavaila Lin Crowe MD Primary Care Provider Kandis Lan MD Unavailable Tim Newton DO Unavailable Unavailable Reason for Visit * Reason Onset Date Comments Orders Call 04/25/2023 Encounter Details Date Type Department Care Team Description 04/25/2023 Telephone Adult Medicine - [address] [address] Alicia Rayo DO Orders Call Social History Tobacco Use Types Packs/Day Years [...] encounter Miscellaneous Notes * Telephone Encounter - Andreea Burr - 04/27/2023 2:26 PM EDT Called and spoke to pt, scheduled in [place] on 10/23/23 @ 2:45 pm. * Telephone Encounter - Alicia Rayo DO - 04/25/2023 11:26 AM EDT Order placed as requested 1. Encounter for screening for osteoporosis DXA BONE DENSITY STUDY 1+ SITS AXIAL SKEL * Telephone Encounter - Andreea Burr - 04/25/2023 9:55 AM EDT Pt would like to schedule a Bone Density test in Oct. No orders have been placed for this yet. Once the orders have been placed, I will call pt to schedule. Thank you. documented in this encounter Plan of Treatment Not on file documented as of this encounter Visit Diagnoses Diagnosis Encounter for screening for osteoporosis- Primary Special screening for osteoporosis documented in this encounter Care Teams Caregiver Services Home Relationship Specialty Start Date End Date Alicia Rayo DO PCP - General Internal Medicine 06/04/21 07/23/23 Lin Eubanks MD [address] [place] [address] PCP - General Internal Medicine 07/24/23 Kandis Lan MD [address] [place] [address] Endocrinology 11/07/23 Tim Newton DO [address] [place] [address] Referring Physician Physiatry 11/07/23 víctor heard Specialist Gastroenterology 11/07/23 [facility] urology Specialist Urology 11/07/23 documented as of this encounter
--- OUTSIDE RECORDS SUMMARY | 2024-09-30 15:26 | XMS_ITS | Encounter Summary ---
Author Organization [facility] Address [address] [place] [address] Care Team Providers Care Icer Machine Name Role Phone Bobbi Walton MD Primary Care Provider UnavailChetna García MD Primary Care Provide r Unavailable Alicia Rayo DO Primary Care Provider Unavaila Lin Crowe MD Primary Care Provider + [phone] Kandis Lan MD Unavailable Tim Newton DO Unavailable Unavailable Encounter Details Date Type Department Care Team Description 01/16/2018 Business Doc Medical Records [address] [place] [id number] Abstract, Provider Social History Tobacco Use Types [...] on filedocumented in this encounter Care Teams Icer Machine Relationship Specialty Start Date End Date Bobbi Walton MD PCP - General Internal Medicine 12/19/14 05/05/20 Cehtna Coats MD PCP - General Internal Medicine 05/06/20 06/03/21 Alicia Rayo DO PCP - General Internal Medicine 06/04/21 07/23/23 Lin Eubanks MD [address] [place] [address] PCP - General Internal Medicine 07/24/23 Kandis Lan MD [address] [place] [address] Endocrinology 11/07/23 Tim Newton DO [address] [place] [address] Referring Physician Physiatry 11/07/23 víctor heard Specialist Gastroenterology 11/07/23 [facility] urology Specialist Urology 11/07/23 documented as of this encounter
--- OUTSIDE RECORDS SUMMARY | 2024-09-30 15:26 | XMS_ITS | Encounter Summary ---
Author Organization [facility] Address [address] [place] [address] Care Team Providers Care Skate Hop Name Role Phone Alicia Rayo DO Primary Care Provider Unavaila Lin Crowe MD Primary Care Provider +1 [phone] Kandis Lan MD Unavailable Tim Newton DO Unavailable Unavailable Reason for Visit * Reason Onset Date Comments Provider Call Back 10/14/2022 Encounter Details Date Type Department Care Team Description 10/14/2022 Telephone [facility] - [address] [address] Kandis Lan MD [address] [place], [place] [id number] Provider Call Back Social History Tobacco Use [...] suspected to have Coronavirus/COVID-19? No / Unsure 10/07/2022 10:53 AM EDT documented as of this encounter Miscellaneous Notes * Telephone Encounter - Kailee Lawson M.A. - 10/17/2022 10:19 AM EDT Spoke with patient booked appt with on 12/13/22 @ 1:00 to disgust prlia shot. * Telephone Encounter - Leelee Cason - 10/14/2022 4:37 PM EDT Caller requesting call back from provider: Is the caller the patient? YES Reason for call back: Patient saw Dr Lan for: Discuss Osteoporosis Options in August. Patient would like a call back about getting the Prolia injection. Please call patient. Caller offered to speak with the nurse for assistance: YES Response: Patient offered to speak with nurse for assistance and patient agreed. Message forwarded to nurse. documented in this encounter Plan of Treatment Not on file documented as of this encounter Visit Diagnoses Not on filedocumented in this encounter Care Teams Skate Hop Relationship Specialty Start Date End Date Alicia Rayo DO PCP - General Internal Medicine 06/04/21 07/23/23 Lin Eubanks MD [address] [place] [address] PCP - General Internal Medicine 07/24/23 Kandis Lan MD [address] [place] [address] Endocrinology 11/07/23 Tim Newton DO [address] [place] [address] Referring Physician Physiatry 11/07/23 víctor heard Specialist Gastroenterology 11/07/23 [facility] urology Specialist Urology 11/07/23 documented as of this encounter
--- OUTSIDE RECORDS SUMMARY | 2024-09-30 15:26 | XMS_ITS | Encounter Summary ---
Author Organization [facility] Address [address] [place] [address] Care Team Providers Care Head Stock Transfer Clerk Name Role Phone Alicia Rayo DO Primary Care Provider Unavaila Lin Crowe MD Primary Care Provider +1 [phone] Kandis Lan MD Unavailable Tim Newton DO Unavailable Unavailable Reason for Visit * Reason Onset Date Comments other 10/18/2021 question regardi ng vaccine Encounter Details Date Type Department Care Team Description 10/18/2021 Telephone Adult Medicine - [address] [address] Alicia Rayo DO other (question regarding vaccine ) Social History Tobacco Use Types Packs/Day Years [...] In the last 10 days, have tamy u been in contact with someone who was confirmed or suspected to have Coronavirus/COVID-19? No / Unsure 10/20/2021 3:13 PM EDT documented as of this encounter Miscellaneous Notes * Telephone Encounter - Kisha Villalta M.A. - 10/27/2021 11:38 AM EDT Spoke to patient and message was given below. Pt stated she had covid boostr and flu,immunization updated * Telephone Encounter - Mary Lucio - 10/25/2021 3:15 PM EDT Pt is calling back pt states she was not informed anything all that was left was a Vm Bsr informed pt Please advise patient to monitor blood pressure at home at least once in a day, different time. Please advise patient to write it down, maintain a logbook and follow-up if blood pressure is consistently low below 90/50 Pt states she does now know how to do this Pt call back for any questions are [phone] * Telephone Encounter - Kisha Villalta M.A. - 10/25/2021 2:48 PM EDT Spoke to patient and message was given below. * Telephone Encounter - Kisha Villalta M.A. - 10/25/2021 9:18 AM EDT Left voicemail to asking call regarding message below * Telephone Encounter - Alicia Rayo DO - 10/21/2021 12:28 PM EDT Please advise patient to monitor blood pressure at home at least once in a day, different time. Please advise patient to write it down, maintain a logbook and follow-up if blood pressure is consistently low below 90/50 * Telephone Encounter - Kisha Villalta M.A. - 10/20/2021 2:05 PM EDT Spoke to patient and message was given below. * Telephone Encounter - Lexy Go - 10/18/2021 9:18 AM EDT Pt calling asking if she needs to get the new vaccine for pneumonia- pt was told to check with PCP to see if she needs - last pneumonia vaccine received was fall 2020 documented in this encounter Plan of Treatment Not on file documented as of this encounter Visit Diagnoses Not on filedocumented in this encounter Care Teams Head Stock Transfer Clerk Relationship Specialty Start Date End Date Alicia Rayo DO PCP - General Internal Medicine 06/04/21 07/23/23 Lin Eubanks MD [address] [place] [address] PCP - General Internal Medicine 07/24/23 Kandis Lan MD [address] [place] [address] Endocrinology 11/07/23 Tim Newton DO [address] [place] [address] Referring Physician Physiatry 11/07/23 víctor heard Specialist Gastroenterology 11/07/23 [facility] urology Specialist Urology 11/07/23 documented as of this encounter
--- OUTSIDE RECORDS SUMMARY | 2024-09-30 15:26 | XMS_ITS | Encounter Summary ---
Author Organization [facility] Address [address] [place] [address] Care Team Providers Care Ceramics Artist Name Role Phone Bobbi Walton MD Primary Care Provider Unavaila Chetna Ortiz MD Primary Care Provide r Unavailable Alicia Rayo DO Primary Care Provider Unavaila Lin Crowe MD Primary Care Provider + [phone] Kandis Lan MD Unavailable Tim Newton DO Unavailable Unavailable Reason for Visit * Reason Onset Date Comments TEST RESULTS 06/18/2018 Encounter Details Date Type Department Care Team Description 06/18/2018 Telephone Medicine/Pediatrics - [address] [id number] Bobbi Walton MD TEST RESULTS Social History Tobacco Use Types Packs/Day Years [...] Miscellaneous Notes * Telephone Encounter - Kaylee Silva L.P.N. - 06/20/2018 4:14 PM EDT Pt notified * Telephone Encounter - Radha Ramirez PA-C - 06/20/2018 3:55 PM EDT Normal result both stress echo and bilateral LE ultrasounds ordered by podiatry. * Telephone Encounter - Kaylee GreggP.NJennifer - 06/20/2018 3:22 PM EDT Please review results on your desk * Telephone Encounter - Kaylee GreggP.N. - 06/19/2018 4:34 PM EDT Requested a second time * Telephone Encounter - Kaylee GreggP.N. - 06/18/2018 9:55 AM EDT Requested * Telephone Encounter - Bailey Lopez - 06/18/2018 9:15 AM EDT Pt looking for stress echo results. PVC. [facility]. On mon. Ordered by kaylee. documented in this encounter Plan of Treatment Not on file documented as of this encounter Visit Diagnoses Not on filedocumented in this encounter Care Teams Ceramics Artist Relationship Specialty Start Date End Date Bobbi Walton MD PCP - General Internal Medicine 12/19/14 05/05/20 Chetna Coats MD PCP - General Internal Medicine 05/06/20 06/03/21 Alicia Rayo DO PCP - General Internal Medicine 06/04/21 07/23/23 Lin Eubanks MD [address] [place] [address] PCP - General Internal Medicine 07/24/23 Kandis Lan MD [address] [place] [address] Endocrinology 11/07/23 Tim Newton DO [address] [place] [address] Referring Physician Physiatry 11/07/23 víctor heard Specialist Gastroenterology 11/07/23 [facility] urology Specialist Urology 11/07/23 documented as of this encounter
--- OUTSIDE RECORDS SUMMARY | 2024-09-30 15:26 | XMS_ITS | Encounter Summary ---
Author Organization [facility] Address [address] [place] [address] Care Team Providers Care Internal Controls Analyst Name Role Phone Alicia Rayo DO Primary Care Provider Unavaila Lin Crowe MD Primary Care Provider +[phone] Kandis Lan MD Unavailable Tim Newton DO Unavailable Unavailable Reason for Visit * Reason Onset Date Comments Provider Call Back 12/22/2022 Encounter Details Date Type Department Care Team Description 12/22/2022 Telephone Gastroenterology [address] [place] [address] Francis Kwong PA-C Provider Call Back (/) Social History Tobacco Use Types Packs/Day Years [...] Telephone Encounter - Imani De Leon - 12/23/2022 8:09 AM EST Patient states they told her to drink juice, cranberry or apple but it's acidic so she chose the vanilla drink. She will have the CT scan. * Telephone Encounter - Francis Kwong PA-C - 12/22/2022 4:44 PM EST Please tell patient that for us to get a good study, she will need to drink the contrast for the CTthat will help give us a better idea about what is going on with her GI tract. Tell her to do the best that she can drinking contrast * Telephone Encounter - Debbie Garcia - 12/22/2022 10:06 AM EST Patient calling states she is having pain and is worried that she has to take a drink for the CT scan. She is wondering if there was anyway she can do the CT without having anything to drink. documented in this encounter Plan of Treatment Not on file documented as of this encounter Visit Diagnoses Not on filedocumented in this encounter Care Teams Internal Controls Analyst Relationship Specialty Start Date End Date Alicia Rayo DO PCP - General Internal Medicine 06/04/21 07/23/23 Lin Eubanks MD [address] [place] [address] PCP - General Internal Medicine 07/24/23 Kandis Lan MD [address] [place] [address] Endocrinology 11/07/23 Tim Newton DO [address] [place] [address] Referring Physician Physiatry 11/07/23 francis kwong Specialist Gastroenterology 11/07/23 [facility] urology Specialist Urology 11/07/23 documented as of this encounter
--- OUTSIDE RECORDS SUMMARY | 2024-09-30 15:26 | XMS_ITS | Encounter Summary ---
Author Organization [facility] Address [address] [place] [address] Care Team Providers Care Deodorizer Operator Name Role Phone Alicia Rayo DO Primary Care Provider Unavaila Lin Crowe MD Primary Care Provider +1 [phone] Kandis Lan MD Unavailable Tim Newton DO Unavailable Unavailable Encounter Details Date Type Department Care Team Description 07/19/2021 Orders Only Medical Records [address] [place] [address] Carmen Harmon NP Social History Tobacco Use [...] on filedocumented in this encounter Care Teams Deodorizer Operator Relationship Specialty Start Date End Date Alicia Rayo DO PCP - General Internal Medicine 06/04/21 07/23/23 Lin Eubanks MD [address] [place] [address] PCP - General Internal Medicine 07/24/23 Kandis Lan MD [address] [place] [address] Endocrinology 11/07/23 Tim Newton DO [address] [place] [address] Referring Physician Physiatry 11/07/23 víctor heard Specialist Gastroenterology 11/07/23 [facility] urology Specialist Urology 11/07/23 documented as of this encounter
--- OUTSIDE RECORDS SUMMARY | 2024-09-30 15:26 | XMS_ITS | Encounter Summary ---
Author Organization [facility] Address [address] [place] [address] Care Team Providers Care Inset Cutter Name Role Phone Azeem Eric MD Primary Care Provider Unavail able Bobbi Walton MD Primary Care Provider Unavaila Chetna Ortiz MD Primary Care Provide r Unavailable Alicia Rayo DO Primary Care Provider Unavaila Lin Crowe MD Primary Care Provider Kandis Lan MD Unavailable Tim Newton DO Unavailable Unavailable Reason for Visit * Reason Onset Date Comments refill request 04/06/2011 Encounter Details Date Type Department Care Team Description 04/06/2011 Refill Medicine/Pediatrics - [address] [address] Azeem Eric MD refill request Social History Tobacco Use Types Packs/Day Years Used Date Smoking Tobacco: Former Cigarettes Q uit: 02/06/1990 Smokeless Tobacco: Never Comments:15 yrs ago Alcohol Use Standard Drinks/Week Comments Yes 0 (1 standard drink = 0.6 oz pur e alcohol) 1/day - wine Alcohol Habits Answer Date Recorded How often [...] encounter Miscellaneous Notes * Telephone Encounter - Zarina Rod - 04/06/2011 3:35 PM EST Msg left for pt to call and book * Telephone Encounter - Zenobia Tomlin M.A. - 04/06/2011 3:00 PM EST Script done by Dr. Eric. BSR - please schedule pt per below * Telephone Encounter - Zenobia Tomlin M.A. - 04/06/2011 8:45 AM EST Last ov 11/02/10. BSR - please schedule pt for 6 month follow up. Request sent to provider for refill. Component Value Date NA 138 11/02/2010 K 3.7 11/02/2010 CO2 26.7 11/02/2010 CL 102 11/02/2010 BUN 13 11/02/2010 CREAT 0.7 11/02/2010 GLU 81 11/02/2010 ALB 4.3 11/02/2010 SGOT 22 11/02/2010 SGPT 17 11/02/2010 TBILI 0.6 11/02/2010 ALKPHOS 73 11/02/2010 TP 7.1 11/02/2010 CA 9.8 11/02/2010 GFR > 60 11/02/2010 * Telephone Encounter - Nathan Barrientos - 04/06/2011 8:38 AM EST WHEN WAS THE PATIENT'S LAST APPOINTMENT IN ADULT MEDICINE? [id number] WHEN WAS THE LAST TIME THE PATIENT SAW THEIR PCP? Same as above Does patient have an upcoming appointment? No (THE MEDICATION REQUESTED IS ON THE MED LIST ABOVE) All of the medications requested were on the CURRENT MEDS list Did you check the Pharmacy information above?: YES Is this a mail order prescription request? NO Indicate how soon the patient needs the script: BY THE END OF THE DAY Patient would like script to be: FAXED TO PHARMACY Is the doctor here today?: YES Can the message wait until the doctor returns?: NO Patients current insurance carrier is: [place]: [place] POS Plan: PPO $20 [employer] [id number] Product Type: PPO [id number] documented in this encounter Plan of Treatment Not on file documented as of this encounter Visit Diagnoses Not on filedocumented in this encounter Care Teams Inset Cutter Relationship Specialty Start Date End Date Azeem Eric MD PCP - General 05/09/00 12/18/14 Bobbi Walton MD PCP - General Internal Medicine 12/19/14 05/05/20 Chetna Coats MD PCP - General Internal Medicine 05/06/20 06/03/21 Alicia Rayo DO PCP - General Internal Medicine 06/04/21 07/23/23 Lin Eubanks MD [address] [place] [address] PCP - General Internal Medicine 07/24/23 Kandis Lan MD [address] [place] [address] Endocrinology 11/07/23 Tim Newton DO [address] [place] [address] Referring Physician Physiatry 11/07/23 víctor heard Specialist Gastroenterology 11/07/23 [facility] urology Specialist Urology 11/07/23 documented as of this encounter
--- OUTSIDE RECORDS SUMMARY | 2024-09-30 15:26 | XMS_ITS | Encounter Summary ---
Author Organization [facility] Address [address] [place] [address] Care Team Providers Care Cafeteria Cook Name Role Phone Alicia Rayo DO Primary Care Provider Unavaila Lin Crowe MD Primary Care Provider [phone] Kandis Lan MD Unavailable Tim Newton DO Unavailable Unavailable Reason for Visit * Reason Onset Date Comments TEST RESULTS 11/19/2021 Encounter Details Date Type Department Care Team Description 11/19/2021 Telephone Internal Medicine - [address], [address] [place] [address] Alicia Rayo DO TEST RESULTS Social History Tobacco Use Types [...] suspected to have Coronavirus/COVID-19? No / Unsure 11/10/2021 10:35 AM EDT documented as of this encounter Miscellaneous Notes * Telephone Encounter - Maria Luisa Gaspar - 11/22/2021 11:53 AM EDT Patient aware of urine * Telephone Encounter - Samantha Mina MD - 11/22/2021 10:53 AM EDT Urine is not showing any infection or blood, not concerning * Telephone Encounter - Ana Luis - 11/19/2021 10:[address] Mina Patient requesting results for Urine done 11/10/21 please add result note so I can notify patient. * Telephone Encounter - Pauline Rodriguez - 11/19/2021 10:34 AM EDT Patient would like her results from her urinalysis. Please advise. documented in this encounter Plan of Treatment Not on file documented as of this encounter Visit Diagnoses Not on filedocumented in this encounter Care Teams Cafeteria Cook Relationship Specialty Start Date End Date Alicia Rayo DO PCP - General Internal Medicine 06/04/21 07/23/23 Lin Eubanks MD [address] [place] [address] PCP - General Internal Medicine 07/24/23 Kandis Lan MD [address] [place] [address] Endocrinology 11/07/23 Tim Newton DO [address] [place] [address] Referring Physician Physiatry 11/07/23 víctor heard Specialist Gastroenterology 11/07/23 [facility] urology Specialist Urology 11/07/23 documented as of this encounter
--- OUTSIDE RECORDS SUMMARY | 2024-09-30 15:26 | XMS_ITS | Encounter Summary ---
Author Organization [facility] Address [address] [place] [address] Care Team Providers Care Shellac Polisher Name Role Phone Alicia Rayo DO Primary Care Provider Unavaila Lin Crowe MD Primary Care Provider [phone] Kandis Lan MD Unavailable Tim Newton DO Unavailable Unavailable Reason for Visit * Reason Onset Date Comments TEST RESULTS 06/30/2021 Encounter Details Date Type Department Care Team Description 06/30/2021 Telephone [facility] [employer] | [employer] [address] [place] [address] Familia Johnson DO TEST RESULTS Social History Tobacco Use [...] suspected to have Coronavirus/COVID-19? No / Unsure 06/28/2021 2:09 PM EDT documented as of this encounter Miscellaneous Notes * Telephone Encounter - Melanie Marie M.A. - 06/30/2021 9:47 AM EDT Patient is aware of results. KM * Telephone Encounter - Mable Maza - 06/30/2021 9:27 AM EDT Pt returned call - same number * Telephone Encounter - Joselyn Cleary M.A. - 06/30/2021 8:58 AM EDT Left patient message to return call-AC * Telephone Encounter - Joselyn Cleary M.A. - 06/30/2021 8:57 AM EDT ----- Message from Familia Johnson DO sent at 06/29/2021 5:01 PM EDT ----- Can you please let the patient know that her ultrasound is unchanged and the ovaries are normal. Please let her know I recommend she keep the appointment that she has coming up with GI. She may follow-up again following the appointment with GI if needed. Familia Johnson DO documented in this encounter Plan of Treatment Not on file documented as of this encounter Visit Diagnoses Not on filedocumented in this encounter Care Teams Shellac Polisher Relationship Specialty Start Date End Date Alicia Rayo DO PCP - General Internal Medicine 06/04/21 07/23/23 Lin Eubanks MD [address] [place] [address] PCP - General Internal Medicine 07/24/23 Kandis Lan MD [address] [place] [address] Endocrinology 11/07/23 Tim Newton DO [address] [place] [address] Referring Physician Physiatry 11/07/23 víctor heard Specialist Gastroenterology 11/07/23 [facility] urology Specialist Urology 11/07/23 documented as of this encounter"
--- OUTSIDE RECORDS SUMMARY | 2024-09-30 15:26 | XMS_ITS | Encounter Summary ---
Author Organization [facility] Address [address] [place] [address] Care Team Providers Care Punch Machine Hand Name Role Phone Azeem Eric MD Primary Care Provider Unavail able Bobbi Walton MD Primary Care Provider Unavaila Chetna Ortiz MD Primary Care Provide r Unavailable Alicia Rayo DO Primary Care Provider Unavaila Lin Crowe MD Primary Care Provider Kandis Lan MD Unavailable Tim Newton DO Unavailable Unavailable Reason for Visit * Reason Comments Encounter Details Date Type Department Care Team Description 05/07/2012 Telephone OBGYN - [address] [address] Sandra Woods CNM Social History Tobacco Use Types Packs/Day Years [...] on filedocumented in this encounter Care Teams Punch Machine Hand Relationship Specialty Start Date End Date Azeem Eric MD PCP - General 05/09/00 12/18/14 Bobbi Walton MD PCP - General Internal Medicine 12/19/14 05/05/20 Chetna Coats MD PCP - General Internal Medicine 05/06/20 06/03/21 Alicia Rayo DO PCP - General Internal Medicine 06/04/21 07/23/23 Lin Eubanks MD [address] [place] [address] PCP - General Internal Medicine 07/24/23 Kandis Lan MD [address] [place] [address] Endocrinology 11/07/23 Tim Newton DO [address] [place] [address] Referring Physician Physiatry 11/07/23 víctor heard Specialist Gastroenterology 11/07/23 [facility] urology Specialist Urology 11/07/23 documented as of this encounter
--- OUTSIDE RECORDS SUMMARY | 2024-09-30 15:26 | XMS_ITS | Encounter Summary ---
Author Organization [facility] Address [address] [place] [address] Care Team Providers Care Mill Hand Plate Mill Name Role Phone Alicia Rayo DO Primary Care Provider Unavaila Lin Crowe MD Primary Care Provider [phone] Kandis Lan MD Unavailable Tim Newton DO Unavailable Unavailable Reason for Visit * Reason Onset Date Comments Provider Call Back 11/01/2021 Encounter Details Date Type Department Care Team Description 11/01/2021 Telephone Gastroenterology [address] [place] [address] Fernando Cleaning PA-C Provider Call Back Social History Tobacco [...] was confirmed or suspected to have Coronavirus/COVID-19? Unable to assess 11/02/2021 9:19 AM EDT documented as of this encounter Miscellaneous Notes * Telephone Encounter - Fernando Cleaning PA-C - 11/01/2021 4:13 PM EDT Will increase to protonix 40 mg Pt to make a follow up appt if not better * Telephone Encounter - Marcie Armendariz - 11/01/2021 8:37 AM EDT Patient has noticed that the pain under her rib cage is worsening again despite the Pantoprazole. She has been slowly reintroducing herself to different foods and cannot link the pain to anything sheeats. She is wondering if the dosage can be increased. Her phone is [phone]. documented in this encounter Plan of Treatment Not on file documented as of this encounter Visit Diagnoses Not on filedocumented in this encounter Care Teams Mill Hand Plate Mill Relationship Specialty Start Date End Date Alicia Rayo DO PCP - General Internal Medicine 06/04/21 07/23/23 Lin Eubanks MD [address] [place] [address] PCP - General Internal Medicine 07/24/23 Kandis Lan MD [address] [place] [address] Endocrinology 11/07/23 Tim Newton DO [address] [place] [address] Referring Physician Physiatry 11/07/23 víctor heard Specialist Gastroenterology 11/07/23 [facility] urology Specialist Urology 11/07/23 documented as of this encounter
--- OUTSIDE RECORDS SUMMARY | 2024-09-30 15:27 | XMS_ITS | Encounter Summary ---
Author Organization [facility] Address [address] [place] [address] Care Team Providers Care Marbleizing Machine Tender Name Role Phone Azeem Eric MD Primary Care Provider Unavail able Bobbi Walton MD Primary Care Provider Unavaila Chetna Ortiz MD Primary Care Provide r Unavailable Alicia Rayo DO Primary Care Provider Unavaila Lin Crowe MD Primary Care Provider [phone] Kandis Lan MD Unavailable Tim Newton DO Unavailable Unavailable Encounter Details Date Type Department Care Team Description 07/21/2004 Orders Only OBGYN - [address] [address] Sandra Woods CNM DYSURIA (Primary Dx) Social History Tobacco Use Types Packs/Day Years Used Date Smoking Tobacco: Never Assessed Alcohol Habits Answer Date Recorded How often [...] as of this encounter Plan of Treatment Pending Results Name Type Priority Associated Diagnoses Date /Time URINE, CULTURE Lab Routine Dysuria 07/21/2004 5:25 PM EDT documented as of this encounter Procedures Procedure Name Priority Date/Time Associated Diagnosis Comments URINE, CULTURE Routine 07/21/2004 5:25 PM EDT Dysuria documented in this encounter Visit Diagnoses Diagnosis Dysuria- Primary documented in this encounter Care Teams Marbleizing Machine Tender Relationship Specialty Start Date End Date Azeem Eric MD PCP - General 05/09/00 12/18/14 Bobbi Walton MD PCP - General Internal Medicine 12/19/14 05/05/20 Chetna Coats MD PCP - General Internal Medicine 05/06/20 06/03/21 Alicia Rayo DO PCP - General Internal Medicine 06/04/21 07/23/23 Lin Eubanks MD [address] [place] [address] PCP - General Internal Medicine 07/24/23 Kandis Lan MD [address] [place] [address] Endocrinology 11/07/23 Tim Newton DO [address] [place] [address] Referring Physician Physiatry 11/07/23 víctor heard Specialist Gastroenterology 11/07/23 [facility] urology Specialist Urology 11/07/23 documented as of this encounter
--- OUTSIDE RECORDS SUMMARY | 2024-09-30 15:27 | XMS_ITS | Encounter Summary ---
Author Organization [facility] Address [address] [place] [address] Care Team Providers Care Outcomes Specialist Name Role Phone Alicia Rayo DO Primary Care Provider Unavaila Lin Crowe MD Primary Care Provider [phone] Kandis Lan MD Unavailable Tim Newton DO Unavailable Unavailable Reason for Visit * Reason Onset Date Comments Orders Call 06/18/2021 Encounter Details Date Type Department Care Team Description 06/18/2021 Telephone Adult Medicine - [address] [address] Alicia Rayo DO Orders Call Social History [...] encounter Miscellaneous Notes * Telephone Encounter - Brie Albarran - 06/18/2021 4:28 PM EDT Pt would like an order for bone density - please advise documented in this encounter Plan of Treatment Not on file documented as of this encounter Results * DXA BONE DENSITY STUDY 1+ SITS AXIAL SKEL (10/20/2021 3:39 PM EDT) Narrative Sami Salinas MD - 10/22/2021 2:02 PM EDT BONE DENSITY Lumbar Spine T-score is -2.2 (SD relative to 20-29 y/o adult) Z-score is -0.2 (SD relative to age matched peers) This is consistent with osteopenia by criteria defined by the WHO. Left Hip T-score is -1.9 Z-score is -0.1 This is consistent with osteopenia by criteria defined by the WHO. Comparison exam(s): significant decrease in bone density of hip when compared to most recent bone density examination Confidence level is +/-95%. Impression: Based on the World Health Organization criteria, Padmini Garrett should be classified as having osteopenia. This patient has a 9.8% risk of major osteoporotic fracture and a 1.7% risk of hip fracture over the next 10 years. (World Health Organization Fracture Risk Assessment) [facility] Department of Internal Medicine recommends using National Osteoporosis Foundation (NOF) guidelines in treatment decisions related to osteoporosis. NOF guidelines suggest considering treatment for postmenopausal women and men aged 50 or older presenting with the following: History of hip or vertebral fracture. T-score less than or equal to -2.5 (DXA) at the femoral neck, total hip, or spine, after appropriate evaluation to exclude secondary causes. Low bone mass (T-score between -1.0 and -2.5 at the femoral neck or spine) AND a 10-year probability of a hip fracture greater than or equal to 3% OR a 10-year probability of a major osteoporosis-related fracture greater than or equal to 20% based on the [place]-adapted WHO algorithm Please note that all treatment decisions require clinical judgment and consideration of individual patient factors, including patient preferences, co-morbidities, previous drug use, risk factors not captured in the FRAX model (e.g., frailty, falls, vitamin D deficiency, increased bone turnover, interval significant decline in bone density) and possible under- or over-estimation of fracture risk by FRAX. Alicia Rayo DO DEXA documented in this encounter Visit Diagnoses Diagnosis Encounter for screening for osteoporosis- Primary Special screening for osteoporosis Encounter for screening for osteoporosis Special screening for osteoporosis documented in this encounter Care Teams Outcomes Specialist Relationship Specialty Start Date End Date Alicia Rayo DO PCP - General Internal Medicine 06/04/21 07/23/23 Lin Eubanks MD [address] [place] [address] PCP - General Internal Medicine 07/24/23 Kandis Lan MD [address] [place] [address] Endocrinology 11/07/23 Tim Newton DO [address] [place] [address] Referring Physician Physiatry 11/07/23 víctor heard Specialist Gastroenterology 11/07/23 [facility] urology Specialist Urology 11/07/23 documented as of this encounter
--- OUTSIDE RECORDS SUMMARY | 2024-09-30 15:27 | XMS_ITS | Encounter Summary ---
Author Organization [facility] Address [address] [place] [address] Care Team Providers Care Voice Teacher Name Role Phone Chetna Coats MD Primary Care Provide r Unavailable Alicia Rayo DO Primary Care Provider Unavaila Lin Crowe MD Primary Care Provider Kandis Lan MD Unavailable Tim Newton DO Unavailable Unavailable Encounter Details Date Type Department Care Team Description 12/15/2020 Telephone Adult Medicine [address] [address] Chetna Coats MD Social History Tobacco Use Types Packs/Day [...] Exposure Response Date Recorded In the last month, have you been in contact with someone who was confirmed or suspected to have Coronavirus / COVID-19? No / Unsure 12/14/2020 1:20 PM EST documented as of this encounter Miscellaneous Notes * Telephone Encounter - Mary Naveed - 12/18/2020 1:00 PM EST Pt calling back and informed her Her labs are unremarkable except for elevated LDL cholesterol, it is increased when compared to her previous labs ?? I advise to start low-dose cholesterol-lowering medication-atorvastatin 10 mg once daily at bedtime. Prescription for Lipitor (atorvastatin) is sent, avoid grapefruit juice with Lipitor. This type of drug is usually highly effective to lower LDL cholesterol and is usually very well tolerated. Adviseher to be alert for persistent nausea, abdominal pain, jaundice or pronounced persistent, diffuse muscle pain. Should such symptoms occur, Patient is to discontinue the drug immediately and let us know Pt understands. Pt is looking for information for diet and what is ok to eat for this , to be sent to home address. [address] [facility] [id number] * Telephone Encounter - Brie Gonzalez M.A. - 12/18/2020 11:44 AM EST Called pt and left message to return call * Telephone Encounter - Chetna Coats MD - 12/17/2020 3:51 PM EST Her labs are unremarkable except for elevated LDL cholesterol, it is increased when compared to herprevious labs Lab Results Component Value Date LDL 134 12/14/2020 LDL 110 06/10/2020 LDL 123 12/05/2019 LDL 112 11/29/2018 LDL 113 05/29/2018 I advise to start low-dose cholesterol-lowering medication-atorvastatin 10 mg once daily at bedtime. Prescription for Lipitor (atorvastatin) is sent, avoid grapefruit juice with Lipitor. This type of drug is usually highly effective to lower LDL cholesterol and is usually very well tolerated. Adviseher to be alert for persistent nausea, abdominal pain, jaundice or pronounced persistent, diffuse muscle pain. Should such symptoms occur, Patient is to discontinue the drug immediately and let us know. Please call her with above information * Telephone Encounter - Floridalma Garcia - 12/16/2020 8:52 AM EST Patient calling back about this. Please advise. * Telephone Encounter - Reena Moffett - 12/15/2020 9:21 AM EST Patient looking for blood work done 12/[address] Coats, please advise * Telephone Encounter - Ct Taveras - 12/15/2020 9:01 AM EST Inform patient: ANY URGENT OR ABNORMAL RESULTS WIILL RESULT IN A CALL BACK TO THE PATIENT [place]. Type of test: : blood work Date test was performed: 12.14.20 Where was the test performed: [facility] Who ordered this test?: Is the doctor here today?: NO Can the message wait until the doctor returns?: NO IF PATIENT'S PCP IS NOT IN INSTRUCT PATIENT THAT THEY WILL RECEIVE A CALL BACK WHEN THE PCP IS IN THE OFFICE NEXT. documented in this encounter Plan of Treatment Not on file documented as of this encounter Results * TRANSAMINASE (SGPT)(ALT) UV- (06/18/2021 4:22 PM EDT) SGPT 27 10 - 60 U/L 06/18/2021 6:16 PM EDT [facility] 06/18/2021 4:22 PM EDT 06/18/2021 4:22 PM EDT Narrative [facility] - 06/18/2021 6:16 PM EDT Release to patient->Immediate Chetna Coats MD LAB [facility] * TRANSAMINASE (SGOT)(AST) UV- (06/18/2021 4:22 PM EDT) SGOT 24 10 - 42 U/L 06/18/2021 6:16 PM EDT [facility] 06/18/2021 4:22 PM EDT 06/18/2021 4:22 PM EDT Narrative [facility] - 06/18/2021 6:16 PM EDT Release to patient->Immediate Chetna Coats MD LAB Performing Organization Address City/[facility]/ZIP Co de Phone Number [facility] * LIPID PROFILE (06/18/2021 4:22 PM EDT) Cholesterol 196 0 - 200 mg/dL 06/18/2021 6:16 PM EDT [facility] TRIGLYCERIDES 49 0 - 150 mg/dL 06/18/2021 6:24 PM EDT [facility] HDL CHOLESTEROL 96 >40 mg/dL 6:24 PM EDT [facility] LDL CALCULATED 91 0 - 100 mg/dL 06/18/2021 6:24 PM EDT [facility] TC-HDLC RATIO 2.0 0 - 4.4 mg/dL 06/18/2021 6:24 PM EDT [facility] 06/18/2021 4:22 PM EDT 06/18/2021 4:22 PM EDT Narrative [facility] - 06/18/2021 6:24 PM EDT Release to patient->Immediate Chetna Coats MD LAB [facility] documented in this encounter Visit Diagnoses Diagnosis Mixed hyperlipidemia- Primary Mixed hyperlipidemia documented in this encounter Care Teams Voice Teacher Relationship Specialty Start Date End Date Chetna Coats MD PCP - General Internal Medicine 05/06/20 06/03/21 Alicia Rayo DO PCP - General Internal Medicine 06/04/21 07/23/23 Lin Eubanks MD [address] [place] [id number] PCP - General Internal Medicine 07/24/23 Kandis Lan MD [address] [place] [address] Endocrinology 11/07/23 Tim Newton DO [address] [place] [address] Referring Physician Physiatry 11/07/23 víctor heard Specialist Gastroenterology 11/07/23 [facility] urology Specialist Urology 11/07/23 documented as of this encounter
--- OUTSIDE RECORDS SUMMARY | 2024-09-30 15:27 | XMS_ITS | Encounter Summary ---
Author Organization [facility] Address [address] [place] [address] Care Team Providers Care Land Department Head Name Role Phone Alicia Rayo DO Primary Care Provider Unavaila Lin Crowe MD Primary Care Provider [phone] Kandis Lan MD Unavailable Tim Newton DO Unavailable Unavailable Reason for Visit * Reason Onset Date Comments Prior Authorization 09/26/2022 Gastro Encounter Details Date Type Department Care Team Description 09/26/2022 Telephone Gastroenterology - [address] [place] [address] Humaira Matson MD [address] [place] [id number] Prior Authorization (Gastro/) Social History Tobacco Use Types Packs/Day Years [...] suspected to have Coronavirus/COVID-19? No / Unsure 09/09/2022 1:56 PM EDT documented as of this encounter Miscellaneous Notes * Telephone Encounter - Gerdafrandy Mcmillan - 09/26/2022 1:47 PM EDT [facility] Ins[id number] Order Forwared to GI Schedulers * Telephone Encounter - Gerda Burris Hipolito - 09/26/2022 1:23 PM EDT Images from the original note were not included. Myriam Hargrove Diagnostic PA & External surgeon [place] pre-op pool Pre-auth needed Patient is scheduled for an Endoscopy on 10/04/22 Diagnosis DYSPHAGIA Patients insurance: [employer] MEDICARE Appointment is with Gregory Matson MD Code to process pre-auth for: [id number] Location [facility] procedure: [facility] documented in this encounter Plan of Treatment Not on file documented as of this encounter Visit Diagnoses Not on filedocumented in this encounter Care Teams Land Department Head Relationship Specialty Start Date End Date Alicia Rayo DO PCP - General Internal Medicine 06/04/21 07/23/23 Lin Eubanks MD [address] [place] [address] PCP - General Internal Medicine 07/24/23 Kandis Lan MD [address] [place] [address] Endocrinology 11/07/23 Tim Newton DO [address] [place] [address] Referring Physician Physiatry 11/07/23 víctor heard Specialist Gastroenterology 11/07/23 [facility] urology Specialist Urology 11/07/23 documented as of this encounter
--- OUTSIDE RECORDS SUMMARY | 2024-09-30 15:27 | XMS_ITS | Encounter Summary ---
Author Organization [facility] Address [address] [place] [address] Care Team Providers Care Sales Demonstrator Name Role Phone Alicia Rayo DO Primary Care Provider Unavaila Lin Crowe MD Primary Care Provider [phone] Kandis Lan MD Unavailable Tim Newton DO Unavailable Unavailable Reason for Visit * Reason Onset Date Comments medication problems 06/29/2022 Encounter Details Date Type Department Care Team Description 06/29/2022 Telephone Adult Medicine - [address] [address] Alicia Rayo DO medication problems Social History [...] suspected to have Coronavirus/COVID-19? No / Unsure 06/27/2022 3:26 PM EDT documented as of this encounter Miscellaneous Notes * Telephone Encounter - Alicia Rayo DO - 07/08/2022 10:37 AM EDT Discussed with patient Can try trazodone 25 mg, if cannot tolerate then advised to stop completely. Verbalized understanding and agreed with the plan * Telephone Encounter - Sanam Brothers - 07/07/2022 11:32 AM EDT Patient called asking for a call back regarding medication She is saying that she did get Fish Oil and she is taking it * Telephone Encounter - Robina Lin - 07/05/2022 4:54 PM EDT Patient called back in regards to medication-Patient states they stopped taking medication last week- Would like a call back * Telephone Encounter - Reanna Avery L.P.NJennifer - 06/30/2022 3:38 PM EDT Please review message regarding Fish Oil and Trazodone Can wait for your return to office Will advise patient to stop trazodone until I hear from the PCP who is out of office. Patient also weepy and wondering what dose she should take for fish oil and if the brand matters Patient was advised that the brand does not matter and she should follow the directions on the bottle for now and I will advise her if Dr. Alicia Rayo has other recommendations * Telephone Encounter - Dalia Plasencia - 06/30/2022 3:16 PM EDT Patient is calling back. She has questions about of how much fish oil to take. She would also like to know if she should take half of the trazodone. She is requesting a call back. * Telephone Encounter - Reanna Avery L.P.N. - 06/30/2022 10:43 AM EDT Patient stated that she still feels dizzy even though she stopped taking it 2 days ago started to feel better but then took another new medication ordered by urology (oxybutin) and is started to feelthat way again. Patient was advised Would forward for recommendation and needs to discuss oxybutin with ordering provider She states someone told her to take a half a tablet today via telephone, but I do not see any encounter Forwarded for recommendation. * Telephone Encounter - Reanna Avery L.P.N. - 06/29/2022 10:05 AM EDT Please review message regarding side effects of trazodone-dizziness poor balance * Telephone Encounter - Brie Albarran - 06/29/2022 9:58 AM EDT Who is calling? The patient Name of the medication Trazedone 50 mg What is the specific problem or interaction? Dizziness - off balance If the patient is having a problem with taking the med - how long has the problem been going on? N/A documented in this encounter Plan of Treatment Not on file documented as of this encounter Visit Diagnoses Not on filedocumented in this encounter Care Teams Sales Demonstrator Relationship Specialty Start Date End Date Alicia Rayo DO PCP - General Internal Medicine 06/04/21 07/23/23 Lin Eubanks MD [address] [place] [address] PCP - General Internal Medicine 07/24/23 Kandis Lan MD [address] [place] [address] Endocrinology 11/07/23 Tim Newton DO [address] [place] [address] Referring Physician Physiatry 11/07/23 víctor heard Specialist Gastroenterology 11/07/23 [facility] urology Specialist Urology 11/07/23 documented as of this encounter
--- OUTSIDE RECORDS SUMMARY | 2024-09-30 15:27 | XMS_ITS | Encounter Summary ---
Author Organization [facility] Address [address] [place] [address] Care Team Providers Care Global Analytics Head Name Role Phone Alicia Rayo DO Primary Care Provider Unavaila Lin Crowe MD Primary Care Provider [phone] Kandis Lan MD Unavailable Tim Newton DO Unavailable Unavailable Encounter Details Date Type Department Care Team Description 02/02/2023 Orders Only Gastroenterology - [address] [place] [id number] Francis Kwong PA-C Dysphagia, unspecified type Social History Tobacco Use Types Packs/Day Years [...] Procedure Name Priority Date/Time Associated Diagnosis Comments CHG RADIOLOGIC EXAM ESOPHAGUS SINGLE CONTRAST STUDY Routine 02/02/2023 Dysphagia, unspecified type documented in this encounter Results * RADIOLOGIC EXAM ESOPHAGUS SINGLE CONTRAST STUDY (02/02/2023) Francis Kwong PA-C RADIOLOGY documented in this encounter Visit Diagnoses Diagnosis Dysphagia, unspecified type documented in this encounter Care Teams Global Analytics Head Relationship Specialty Start Date End Date Alicia Rayo DO PCP - General Internal Medicine 06/04/21 07/23/23 Lin Eubanks MD [address] [place] [address] PCP - General Internal Medicine 07/24/23 Kandis Lan MD [address] [place] [address] Endocrinology 11/07/23 Tim Newton DO [address] [place] [address] Referring Physician Physiatry 11/07/23 francis kwong Specialist Gastroenterology 11/07/23 [facility] urology Specialist Urology 11/07/23 documented as of this encounter
--- OUTSIDE RECORDS SUMMARY | 2024-09-30 15:27 | XMS_ITS | Encounter Summary ---
Author Organization [facility] Address [address] [place] [address] Care Team Providers Care Shift Foreman Name Role Phone Alicia Rayo DO Primary Care Provider Unavaila Lin Crowe MD Primary Care Provider [phone] Kandis Lan MD Unavailable Tim Newton DO Unavailable Unavailable Reason for Visit * Reason Comments E-prescribe Rx Request Encounter Details Date Type Department Care Team Description 04/28/2022 Refill Gastroenterology [address] [place] [address] Fernando Cleaning PA-C E-prescribe Rx Request Social History Tobacco Use Types Packs/Day Years [...] suspected to have Coronavirus/COVID-19? No / Unsure 04/13/2022 2:17 PM EST documented as of this encounter Miscellaneous Notes * Telephone Encounter - Mable Rice M.A. - 04/28/2022 1:25 PM EDT JOANNE 04/01/22, GI f/up 08/24/22 documented in this encounter Plan of Treatment Not on file documented as of this encounter Visit Diagnoses Not on filedocumented in this encounter Care Teams Shift Foreman Relationship Specialty Start Date End Date Alicia Rayo DO PCP - General Internal Medicine 06/04/21 07/23/23 Lin Eubanks MD [address] [place] [address] PCP - General Internal Medicine 07/24/23 Kandis Lan MD [address] [place] [address] Endocrinology 11/07/23 Tim Newton DO [address] [place] [address] Referring Physician Physiatry 11/07/23 víctor heard Specialist Gastroenterology 11/07/23 [facility] urology Specialist Urology 11/07/23 documented as of this encounter
--- OUTSIDE RECORDS SUMMARY | 2024-09-30 15:27 | XMS_ITS | Encounter Summary ---
Author Organization [facility] Address [address] [place] [address] Care Team Providers Care Flight Hostess Name Role Phone Alicia Rayo DO Primary Care Provider Unavaila Lin Crowe MD Primary Care Provider Kandis Lan MD Unavailable Tim Newton DO Unavailable Unavailable Reason for Visit * Reason Onset Date Comments Testing 01/06/2023 Encounter Details Date Type Department Care Team Description 01/06/[address] Scan - [address] [address] Francis Kwong PA-C Testing Social History Tobacco Use Types Packs/Day Years [...] encounter Miscellaneous Notes * Telephone Encounter - Shona Gregoryree Downs - 01/06/2023 1:34 PM EST Good Afternoon, This PT was scanned on 01/[address] ABD/Pelvis with IV Contrast. She called today stating she is having abdominal discomfort and a lot of gas pains that are not normal for her. She did not drink the barium or the juice option. She was given bottled water with Optiray 350 mixed into it for an oralcontrast because she was worried about being able to tolerate the barium or the juice. This pt also stated that she would appreciate a call with the results of her CT Scan even if nothing is found so she won't have to wait and worry. Thank you documented in this encounter Plan of Treatment Not on file documented as of this encounter Visit Diagnoses Not on filedocumented in this encounter Care Teams Flight Hostess Relationship Specialty Start Date End Date Alicia Rayo DO PCP - General Internal Medicine 06/04/21 07/23/23 Lin Eubanks MD [address] [place] [address] PCP - General Internal Medicine 07/24/23 Kandis Lan MD [address] [place] [address] Endocrinology 11/07/23 Tim Newton DO [address] [place] [address] Referring Physician Physiatry 11/07/23 francis kwong Specialist Gastroenterology 11/07/23 [facility] urology Specialist Urology 11/07/23 documented as of this encounter
--- OUTSIDE RECORDS SUMMARY | 2024-09-30 15:27 | XMS_ITS | Encounter Summary ---
Author Organization [facility] Address [address] [place] [address] Care Team Providers Care Safety Scientist Name Role Phone Alicia Rayo DO Primary Care Provider Unavaila ble Lin Eubanks MD Primary Care Provider [phone] Kandis Lan MD Unavailable Tim Newton DO Unavailable Unavailable Reason for Visit * Reason Comments E-prescribe Rx Request Encounter Details Date Type Department Care Team Description 08/03/2022 Refill Adult [address] [address] Alicia Rayo DO E-prescribe Rx Request Social History Tobacco Use [...] as of this encounter Visit Diagnoses Diagnosis Mixed hyperlipidemia documented in this encounter Care Teams Safety Scientist Relationship Specialty Start Date End Date Alicia Rayo DO PCP - General Internal Medicine 06/04/21 07/23/23 Lin Eubanks MD [address] [place] [address] PCP - General Internal Medicine 07/24/23 Kandis Lan MD [address] [place] [address] Endocrinology 11/07/23 Tim Newton DO [address] [place] [address] Referring Physician Physiatry 11/07/23 víctor heard Specialist Gastroenterology 11/07/23 [facility] urology Specialist Urology 11/07/23 documented as of this encounter
--- OUTSIDE RECORDS SUMMARY | 2024-09-30 15:27 | XMS_ITS | Encounter Summary ---
Author Organization [facility] Address [address] [place] [address] Care Team Providers Care Maxillofacial Surgeon Name Role Phone Alicia Rayo DO Primary Care Provider Unavaila Lin Crowe MD Primary Care Provider [phone] Kandis Lan MD Unavailable Tim Newton DO Unavailable Unavailable Reason for Visit * Reason Onset Date Comments Prior Authorization 09/26/2022 Encounter Details Date Type Department Care Team Description 09/26/2022 Telephone Gastroenterology [address] [place] [address] Humaira Matson MD [address] [place] [address] Prior Authorization Social History Tobacco Use Types Packs/Day Years [...] encounter Miscellaneous Notes * Telephone Encounter - Myriam susan Heart - 09/26/2022 11:05 AM EDT PRIOR AUTH REQUEST SENT THRU STAFF MESSAGE documented in this encounter Plan of Treatment Not on file documented as of this encounter Visit Diagnoses Not on filedocumented in this encounter Care Teams Maxillofacial Surgeon Relationship Specialty Start Date End Date Alicia Rayo DO PCP - General Internal Medicine 06/04/21 07/23/23 Lin Eubanks MD [address] [place] [address] PCP - General Internal Medicine 07/24/23 Kandis Lan MD [address] [place] [address] Endocrinology 11/07/23 Tim Newton DO [address] [place] [address] Referring Physician Physiatry 11/07/23 víctor heard Specialist Gastroenterology 11/07/23 [facility] urology Specialist Urology 11/07/23 documented as of this encounter
--- OUTSIDE RECORDS SUMMARY | 2024-09-30 15:27 | XMS_ITS | Encounter Summary ---
Author Organization [facility] Address [address] [place] [address] Care Team Providers Care Senior Communications Specialist Name Role Phone Bobbi Walton MD Primary Care Provider Unavaila Chetna Ortiz MD Primary Care Provide r Unavailable Alicia Rayo DO Primary Care Provider Unavaila Lin Crowe MD Primary Care Provider + [phone] Kandis Lan MD Unavailable Tim Newton DO Unavailable Unavailable Reason for Visit * Reason Onset Date Comments TEST RESULTS 12/29/2014 Ultrasound Encounter Details Date Type Department Care Team Description 12/29/2014 Telephone Medicine/Pediatrics - [address] [phone] Bobbi Walton MD TEST RESULTS (Ultrasound) Social History Tobacco Use Types Packs/Day Years Used Date Smoking Tobacco: Former Cigarettes 0.5 1 03/05/1970 - 02/06/1990 Smokeless Tobacco: Never Comments:15 yrs ago Alcohol Use Standard Drinks/Week Comments Yes 0 (1 standard drink = 0.6 oz pur e alcohol) 2-3/day - wine Alcohol Habits Answer Date Recorded [...] encounter Miscellaneous Notes * Telephone Encounter - Carolina Camara RN - 12/30/2014 10:00 AM EST Results mailed per patient request. * Telephone Encounter - Kaylah Maysdeepti - 12/29/2014 4:58 PM EST Pt calling in request to have her latest ultrasound results printed out and mailed to her home address if possible. documented in this encounter Plan of Treatment Not on file documented as of this encounter Visit Diagnoses Not on filedocumented in this encounter Care Teams Senior Communications Specialist Relationship Specialty Start Date End Date Bobbi Walton MD PCP - General Internal Medicine 12/19/14 05/05/20 Chetna Coats MD PCP - General Internal Medicine 05/06/20 06/03/21 Alicia Rayo DO PCP - General Internal Medicine 06/04/21 07/23/23 Lin Eubanks MD [address] [place] [address] PCP - General Internal Medicine 07/24/23 Kandis Lan MD [address] [place] [address] Endocrinology 11/07/23 Tim Newton DO [address] [place] [address] Referring Physician Physiatry 11/07/23 víctor heard Specialist Gastroenterology 11/07/23 [facility] urology Specialist Urology 11/07/23 documented as of this encounter
--- OUTSIDE RECORDS SUMMARY | 2024-09-30 15:27 | XMS_ITS | Encounter Summary ---
Author Organization [facility] Address [address] [place] [address] Care Team Providers Care Centrifugal Casting Machine Tender Name Role Phone Alicia Rayo DO Primary Care Provider Unavaila Lin Crowe MD Primary Care Provider +[phone] Kandis Lan MD Unavailable Tim Newton DO Unavailable Unavailable Encounter Details Date Type Department Care Team Description 09/13/2022 Weave Defect Charting Clerk Report Medical Records [address] [place] [address] Elva France PA-C Social History Tobacco Use Types Packs/Day [...] on filedocumented in this encounter Care Teams Centrifugal Casting Machine Tender Relationship Specialty Start Date End Date Alicia Rayo DO PCP - General Internal Medicine 06/04/21 07/23/23 Lin Eubanks MD [address] [place] [address] PCP - General Internal Medicine 07/24/23 Kandis Lan MD [address] [place] [address] Endocrinology 11/07/23 Tim Newton DO [address] [place] [address] Referring Physician Physiatry 11/07/23 víctor heard Specialist Gastroenterology 11/07/23 [facility] urology Specialist Urology 11/07/23 documented as of this encounter
--- OUTSIDE RECORDS SUMMARY | 2024-09-30 15:27 | XMS_ITS | Encounter Summary ---
Author Organization [facility] Address [address] [place] [address] Care Team Providers Care Senior Partner Name Role Phone Alicia Rayo DO Primary Care Provider Unavaila Lin Crowe MD Primary Care Provider +1 [phone] Kandis Lan MD Unavailable Tim Newton DO Unavailable Unavailable Encounter Details Date Type Department Care Team Description 04/22/2022 Release of Information Medical Records [address] [place] [id number] [place] [address] Social History Tobacco Use Types Packs/Day Years [...] PM EST documented as of this encounter Plan of Treatment Not on file documented as of this encounter Visit Diagnoses Not on filedocumented in this encounter Care Teams Senior Partner Relationship Specialty Start Date End Date Alicia Rayo DO PCP - General Internal Medicine 06/04/21 07/23/23 Lin Eubanks MD [address] [place] [address] PCP - General Internal Medicine 07/24/23 Kandis Lan MD [address] [place] [address] Endocrinology 11/07/23 Tim Newton DO [address] [place] [address] Referring Physician Physiatry 11/07/23 víctor heard Specialist Gastroenterology 11/07/23 [facility] urology Specialist Urology 11/07/23 documented as of this encounter
--- OUTSIDE RECORDS SUMMARY | 2024-09-30 15:27 | XMS_ITS | Encounter Summary ---
Author Organization [facility] Address [address] [place] [address] Care Team Providers Care Medical Claims Specialist Name Role Phone Alicia Rayo DO Primary Care Provider Unavaila Lin Crowe MD Primary Care Provider Kandis Lan MD Unavailable Tim Newton DO Unavailable Unavailable Encounter Details Date Type Department Care Team Description 08/31/2022 Telephone Pediatrics - [address] [address] Carmen London PA-C Social History Tobacco Use Types Packs/Day [...] suspected to have Coronavirus/COVID-19? No / Unsure 09/01/2022 3:00 PM EDT documented as of this encounter Miscellaneous Notes * Telephone Encounter - Loretta Treviño - 08/31/2022 11:15 AM EDT Pt called back advised urine was normal. But asking if a nurse can call back to tell her exactly what else was tested in her urine. documented in this encounter Plan of Treatment Not on file documented as of this encounter Visit Diagnoses Not on filedocumented in this encounter Care Teams Medical Claims Specialist Relationship Specialty Start Date End Date Alicia Rayo DO PCP - General Internal Medicine 06/04/21 07/23/23 Lin Eubanks MD [address] [place] [address] PCP - General Internal Medicine 07/24/23 Kandis Lan MD [address] [place] [address] Endocrinology 11/07/23 Tim Newton DO [address] [place] [address] Referring Physician Physiatry 11/07/23 víctor heard Specialist Gastroenterology 11/07/23 [facility] urology Specialist Urology 11/07/23 documented as of this encounter
--- OUTSIDE RECORDS SUMMARY | 2024-09-30 15:27 | XMS_ITS | Encounter Summary ---
Author Organization [facility] Address [address] [place] [address] Care Team Providers Care Lens Edge Grinder Machine Name Role Phone Alicia Rayo DO Primary Care Provider Unavaila Lin Crowe MD Primary Care Provider [phone] Kandis Lan MD Unavailable Tim Newton DO Unavailable Unavailable Reason for Visit * Reason Onset Date Comments Provider Call Back 01/16/2023 Encounter Details Date Type Department Care Team Description 01/16/2023 Telephone Gastroenterology - [address] [place] [address] Francis Kwong PA-C Provider Call [...] encounter Miscellaneous Notes * Telephone Encounter - Francis Kwong PA-C - 01/19/2023 7:44 AM EST We can increase the Protonix to twice a day and see if that will help. Please let me know if she wants to try that * Telephone Encounter - Imani De Leon - 01/18/2023 2:22 PM EST Spoke to patient who states she has been taking the Mylanta but it's not helping her. * Telephone Encounter - Francis Kwong PA-C - 01/18/2023 1:03 PM EST If she is taking her PPI as directed, and she is still having reflux, she may try and use the Mylanta that we prescribed for her a while back that she can use that upwards of 4 times daily. * Telephone Encounter - Imani De Leon - 01/18/2023 11:55 AM EST Patient states that she feels hot, burning, heartburn in her esophagus. Has been taking her medications. The burning has been getting worse since the beginning of December. Please advise, thanks. Patient also wants to be placed on a wait list. * Telephone Encounter - Imani De Leon - 01/18/2023 9:04 AM EST Called patient back and no answer. Left a message to call us back. * Telephone Encounter - Adelia Waller - 01/18/2023 8:42 AM EST Patient calling back, please return call. * Telephone Encounter - Imani De Leon - 01/17/2023 10:55 AM EST Left a vm for the patient to call our office back. * Telephone Encounter - Mable Horta - 01/16/2023 1:31 PM EST Patient is calling in stating she still has discomfort in her esophagus. Please advise documented in this encounter Plan of Treatment Not on file documented as of this encounter Visit Diagnoses Not on filedocumented in this encounter Care Teams Lens Edge Grinder Machine Relationship Specialty Start Date End Date Alicia Rayo DO PCP - General Internal Medicine 06/04/21 07/23/23 Lin Eubanks MD [address] [place] [address] PCP - General Internal Medicine 07/24/23 Kandis Lan MD [address] [place] [address] Endocrinology 11/07/23 Tim Newton DO [address] [place] [address] Referring Physician Physiatry 11/07/23 francis kwong Specialist Gastroenterology 11/07/23 [facility] urology Specialist Urology 11/07/23 documented as of this encounter
--- OUTSIDE RECORDS SUMMARY | 2024-09-30 15:27 | XMS_ITS | Encounter Summary ---
Author Organization [facility] Address [address] [place] [address] Care Team Providers Care Industrial Maintenance Electrician Name Role Phone Alicia Rayo DO Primary Care Provider Unavaila Lin Crowe MD Primary Care Provider [phone] Kandis Lan MD Unavailable Tim Newton DO Unavailable Unavailable Reason for Visit * Reason Onset Date Comments medication problems 09/09/2022 Encounter Details Date Type Department Care Team Description 09/09/2022 Telephone Adult Medicine - [address] [address] Carmen London PA-C medication problems Social History Tobacco Use Types [...] encounter Miscellaneous Notes * Telephone Encounter - Carmen London PA-C - 09/13/2022 12:07 PM EDT Noted thank you * Telephone Encounter - Yael Cordero - 09/09/2022 2:47 PM EDT Patient forgot to mention a couple things regarding her meds in her appt today. She no longer takesboost, she prefers ensure plus. She also is taking 40mgs of pantoprazole and wanted to inform someone. When the 40mgs are gone she will be doing 20mgs, which she has plenty of she says. documented in this encounter Plan of Treatment Not on file documented as of this encounter Visit Diagnoses Not on filedocumented in this encounter Care Teams Industrial Maintenance Electrician Relationship Specialty Start Date End Date Alicia Rayo DO PCP - General Internal Medicine 06/04/21 07/23/23 Lin Eubanks MD [address] [place] [address] PCP - General Internal Medicine 07/24/23 Kandis Lan MD [address] [place] [address] Endocrinology 11/07/23 Tim Newton DO [address] [place] [address] Referring Physician Physiatry 11/07/23 víctor heard Specialist Gastroenterology 11/07/23 [facility] urology Specialist Urology 11/07/23 documented as of this encounter
--- OUTSIDE RECORDS SUMMARY | 2024-09-30 15:27 | XMS_ITS | Encounter Summary ---
Author Organization [facility] Address [address] [place] [address] Care Team Providers Care Information Assistant Name Role Phone Alicia Rayo DO Primary Care Provider Unavaila Lin Crowe MD Primary Care Provider Kandis Lan MD Unavailable Tim Newton DO Unavailable Unavailable Encounter Details Date Type Department Care Team Description 02/28/2023 Telephone OBGYN - [address] [place] [phone] Alis Brothers MD [address] [place] [address] Social History Tobacco Use Types Packs/Day Years [...] encounter Miscellaneous Notes * Telephone Encounter - Leelee Vincent R.N. - 02/28/2023 1:15 PM EST Spoke with patient.Pt u/s scheduled 03/07/23 * Telephone Encounter - Doris Lucio - 02/28/2023 9:17 AM EST Pt calling states on last office visit it was told she would get an U/S. Pt called over to u/S to schedule but no order has been placed. Please advise documented in this encounter Plan of Treatment Not on file documented as of this encounter Results * SONO PELVIS COMPLETE (03/07/2023 3:25 PM EST) 03/07/2023 3:48 PM EST Impressions SUSAN HORN OTHER EXTERNAL - 03/07/2023 3:56 PM EST IMPRESSION:. 1.3 cm simple appearing left ovarian cyst. Trace of fluid in the endometrial cavity. Prominent adnexal veins, finding which can sometimes be seen with pelvic congestion syndrome. Narrative SUSAN HORN OTHER EXTERNAL - 03/07/2023 3:56 PM EST History: Left ovarian cyst seen on CT scan. Pelvic ultrasound: The pelvis was scanned transabdominally for maximum fqduh-pr-zevl, and then transvaginally for optimum delineation of the uterus and ovaries. The uterus is normal in size, configuration and echogenicity. It measures 6.1 x 2.6 x 3.5 cm. There is no appreciable myometrial or endometrial abnormality. The endometrial thickness is 3 mm maximum. There is a trace of fluid in the endometrial cavity. A 3 mm calcification is noted in the cervix. There is no free fluid. The right ovary could not be visualized either transabdominally or transvaginally. Left ovary contains a simple appearing cyst measuring 1.3 x 1.1 x 0.7 cm. Left ovarian volume is 2.3 cc. Prominent veins are noted in the adnexa bilaterally. Procedure Note Sami Salinas MD - 03/07/2023 History: Left ovarian cyst seen on CT scan. Pelvic ultrasound: The pelvis was scanned transabdominally for xxewkqnybedq-gf-lfiq, and then transvaginally for optimum delineation of the uterus and ovaries. Theuterus is normal in size, configuration and echogenicity. It measures 6.1 x 2.6 x 3.5 cm. There isno appreciable myometrial or endometrial abnormality. The endometrial thickness is 3 mmmaximum. There is a trace of fluid in the endometrial cavity. A 3 mm calcification is notedin the cervix. There is no free fluid. The right ovary could not be visualized either transabdominally ortransvaginally. Left ovary contains a simple appearing cyst measuring 1.3 x 1.1 x 0.7 cm. Leftovarian volume is 2.3 cc. Prominent veins are noted in the adnexa bilaterally. IMPRESSION IMPRESSION:. 1.3 cm simple appearing left ovarian cyst. Trace of fluidin the endometrial cavity. Prominent adnexal veins, finding which can sometimes be seen withpelvic congestion syndrome. Alis Brothers MD ULTRASOUND SUSAN HORN OTHER EXTERNAL documented in this encounter Visit Diagnoses Diagnosis Cyst of ovary, unspecified laterality- Primary Cyst of ovary, unspecified laterality documented in this encounter Care Teams Information Assistant Relationship Specialty Start Date End Date Alicia Rayo DO PCP - General Internal Medicine 06/04/21 07/23/23 Lin Eubanks MD [address] [place] [address] PCP - General Internal Medicine 07/24/23 Kandis Lan MD [address] [place] [address] Endocrinology 11/07/23 Tim Newton DO [address] [place] [address] Referring Physician Physiatry 11/07/23 víctor heard Specialist Gastroenterology 11/07/23 [facility] urology Specialist Urology 11/07/23 documented as of this encounter
--- OUTSIDE RECORDS SUMMARY | 2024-09-30 15:27 | XMS_ITS | Encounter Summary ---
Author Organization [facility] Address [address] [place] [address] Care Team Providers Care Metal Machine Operator Name Role Phone Alicia Rayo DO Primary Care Provider Unavaila Lin Crwoe MD Primary Care Provider [phone] Kandis Lan MD Unavailable Tim Newton DO Unavailable Unavailable Reason for Visit * Reason Comments E-prescribe Rx Request Encounter Details Date Type Department Care Team Description 08/25/2022 Refill Gastroenterology [address] [place] [address] Fernando Cleaning PA-C E-prescribe Rx [...] suspected to have Coronavirus/COVID-19? No / Unsure 08/16/2022 2:28 PM EDT documented as of this encounter Miscellaneous Notes * Telephone Encounter - Susu Magallon - 08/26/2022 9:24 AM EDT Re[facility] Hyoscyamine Sulfate 0.125 MG TABLET DISPERSIBLE not covered by insurance requesting alternative or prior auth, please advise. * Telephone Encounter - Chey Stern M.A. - 08/25/2022 2:23 PM EDT Chris - 04/01/2022 Nov - unknown documented in this encounter Plan of Treatment Not on file documented as of this encounter Visit Diagnoses Not on filedocumented in this encounter Care Teams Metal Machine Operator Relationship Specialty Start Date End Date Alicia Rayo DO PCP - General Internal Medicine 06/04/21 07/23/23 Lin Eubanks MD [address] [place] [address] PCP - General Internal Medicine 07/24/23 Kandis Lan MD [address] [place] [address] Endocrinology 11/07/23 Tim Newton DO [address] [place] [address] Referring Physician Physiatry 11/07/23 víctor heard Specialist Gastroenterology 11/07/23 [facility] urology Specialist Urology 11/07/23 documented as of this encounter
--- OUTSIDE RECORDS SUMMARY | 2024-09-30 15:27 | XMS_ITS | Encounter Summary ---
Author Organization [facility] Address [address] [place] [address] Care Team Providers Care Stock Patch Sawyer Name Role Phone Alicia Rayo DO Primary Care Provider Unavaila Lin Crowe MD Primary Care Provider [phone] Kandis Lan MD Unavailable Tim Newton DO Unavailable Unavailable Reason for Visit * Reason Onset Date Comments Information Needed 09/21/2022 Encounter Details Date Type Department Care Team Description 09/21/2022 Telephone Adult Medicine [address] [address] Alicia Rayo DO Information Needed Social History Tobacco Use Types Packs/Day Years [...] Miscellaneous Notes * Telephone Encounter - Brie Gonzalez M.A. - 09/26/2022 11:30 AM EDT IMMUNIZATION RECORDED IN PT'S CHART * Telephone Encounter - Brie Albarran - 09/23/2022 1:58 PM EDT Pt had this sone at [facility] on 09/21/22 * Telephone Encounter - Brie Albarran - 09/22/2022 3:49 PM EDT Pt has a high dose of the flu vaccine [facility] [place] Just want this updated on her chart- no need a call back * Telephone Encounter - Kisha Villalta M.A. - 09/22/2022 2:56 PM EDT Not able left message ,mailbox is full ,will call later * Telephone Encounter - Robina Lin - 09/21/2022 1:03 PM EDT Patient states they had a flu shot-FYI documented in this encounter Plan of Treatment Not on file documented as of this encounter Visit Diagnoses Not on filedocumented in this encounter Care Teams Stock Patch Sawyer Relationship Specialty Start Date End Date Alicia Rayo DO PCP - General Internal Medicine 06/04/21 07/23/23 Lin Eubanks MD [address] [place] [address] PCP - General Internal Medicine 07/24/23 Kandis Lan MD [address] [place] [address] Endocrinology 11/07/23 Tim Newton DO [address] [place] [address] Referring Physician Physiatry 11/07/23 víctor heard Specialist Gastroenterology 11/07/23 [facility] urology Specialist Urology 11/07/23 documented as of this encounter
--- OUTSIDE RECORDS SUMMARY | 2024-09-30 15:28 | XMS_ITS | Encounter Summary ---
Author Organization [facility] [employer] [facility] Address [address] [place] [address] Care Team Providers Care Hydrodynamics Teacher Name Role Phone PcpDarrell Unassigned Primary Care Provider Rachell villagomezailkj Encounter Details Date Type Department Care Team (Latest Contact Info) Description 03/01/2018 Abstract [facility] CONVERSIONS Dental, Provider, DDS Social History Tobacco Use Types Packs/Day Years Used Date Smoking Tobacco: Never Assessed Comments Unknown Sex and Gender Information Value Date Recorded Sex Assigned at Female 05/24/2022 3:34 PM EDT Legal Sex Female 5:35 PM EDT Gender Identity Female 05/24/2022 3:34 PM EDT Sexual Orientation Choose not to disclose 2022 3:34 PM EDT documented as of this encounter Plan of Treatment Upcoming Encounters Date Type Department Care Team (Late st Contact Info) Description 10/01/2024 3:00 PM EDT Office Visit [facility] DENTAL [address] [place] [address] Jessica Maldonado LLD [address] [place] [address] 10/22/2024 3:00 PM EDT Office Visit [facility] DENTAL [address] [place] [address] Jessica Maldonado LLD [address] [place] [address] 11/12/2024 3:00 PM EDT Office Visit [facility] DENT[facility] [address] [place] [address] Jessica Maldonado LLD [address] [place] [address] 02/05/2025 2:00 PM EST Office Visit [facility] [address] [place] [address] Sivakumar Mendieta documented as of this encounter Visit Diagnoses Not on filedocumented in this encounter Care Teams Hydrodynamics Teacher Relationship Specialty Start Date End Date PcpDarrell Unassigned PCP - General Family Medicine 06/06/22 documented as of this encounter
--- OUTSIDE RECORDS SUMMARY | 2024-09-30 15:28 | XMS_ITS | Encounter Summary ---
Author Organization [facility] Address [address] [place] [address] Care Team Providers Care Instrument Panel Assembler Name Role Phone Alicia Rayo DO Primary Care Provider Unavaila Lin Crowe MD Primary Care Provider [phone] Kandis Lan MD Unavailable Tim Newton DO Unavailable Unavailable Reason for Visit * Reason Onset Date Comments Provider Call Back 02/08/2022 Encounter Details Date Type Department Care Team Description 02/08/2022 Telephone General Surgery - [place] [address] [address] Lorena Ribera PA-C [address] [address] Provider Call Back Social History Tobacco Use [...] suspected to have Coronavirus/COVID-19? No / Unsure 01/27/2022 12:55 PM EST documented as of this encounter Miscellaneous Notes * Telephone Encounter - Susu Villa - 02/09/2022 4:34 PM EST Called pt, informed her of the below meaage from Lorena, she had a few questions about her diet, told hr sha can discuss any question with lorena at her upcoming appointment 02/17/22 . * Telephone Encounter - Lorena Ribera PA-C - 02/09/2022 11:28 AM EST If heartburn continues after surgery likely not gallbladder etiology (i.e. she could have GERD or something else causing this). She can try OTC antacids as needed however I recommend follow up with her PCP for further evaluation and management if this persists. With regard to her question about going up and down stairs she can do this. Her only restriction isnot to lift pull or push anything in excess of 15 lbs for 8 weeks postoperatively. She may otherwise return to normal activity as tolerated. * Telephone Encounter - Min Tate - 02/08/2022 4:14 PM EST Patient c/o getting heart burn now that she went back to normal eating, questions why this is happening? Is it common? documented in this encounter Plan of Treatment Not on file documented as of this encounter Visit Diagnoses Not on filedocumented in this encounter Care Teams Instrument Panel Assembler Relationship Specialty Start Date End Date Alicia Rayo DO PCP - General Internal Medicine 06/04/21 07/23/23 Lin Eubanks MD [address] [place] [address] PCP - General Internal Medicine 07/24/23 Kandis Lan MD [address] [place] [address] Endocrinology 11/07/23 Tim Newton DO [address] [place] [address] Referring Physician Physiatry 11/07/23 víctor heard Specialist Gastroenterology 11/07/23 [facility] urology Specialist Urology 11/07/23 documented as of this encounter
--- OUTSIDE RECORDS SUMMARY | 2024-09-30 15:28 | XMS_ITS | Encounter Summary ---
Author Organization [facility] Address [address] [place] [address] Care Team Providers Care Display Manager Name Role Phone Lin Eubanks MD Primary Care Provider + [phone] Kandis Lan MD Unavailable Tim Newton DO Unavailable Unavailable Reason for Visit * Reason Onset Date Comments Provider Call Back 08/28/2023 Encounter Details Date Type Department Care Team Description 08/28/2023 Telephone Gastroenterology - [address] [place] [address] Francis Kwong PA-C Provider Call [...] Telephone Encounter - Imani De Leon - 08/31/2023 11:37 AM EDT Spoke to patient and advised. * Telephone Encounter - Francis Kwong PA-C - 08/29/2023 9:28 PM EDT Patient is looking for medication to help with the diarrhea and we will be ordering budesonide to see if that will help. Please asked patient to call us in a couple of weeks to give us an update on his symptoms. * Telephone Encounter - Imani De Leon - 08/29/2023 3:37 PM EDT Patient would like to try Budesonide, thanks. * Telephone Encounter - Francis Kwong PA-C - 08/29/2023 12:14 PM EDT Another medication that we can try is budesonide to see if that will help with the passage of loosestools if Imodium has been tried and been ineffective. Please let me know which she would like to try next * Telephone Encounter - Imani De Leon - 08/29/2023 8:38 AM EDT Please advise, thanks * Telephone Encounter - Adelia Waller - 08/28/2023 3:25 PM EDT Patient calling, states insurance doesn't cover dicyclomine any longer but she is having loose stools since stopping medication. Asking if there is an alternative medication she can take. documented in this encounter Plan of Treatment Not on file documented as of this encounter Visit Diagnoses Not on filedocumented in this encounter Care Teams Display Manager Relationship Specialty Start Date End Date Lin Eubanks MD [address] [place] [address] PCP - General Internal Medicine 07/24/23 Kandis Lan MD [address] [place] [address] Endocrinology 11/07/23 Tim Newton DO [address] [place] [address] Referring Physician Physiatry 11/07/23 francis kwong Specialist Gastroenterology 11/07/23 [facility] urology Specialist Urology 11/07/23 documented as of this encounter
--- OUTSIDE RECORDS SUMMARY | 2024-09-30 15:28 | XMS_ITS | Encounter Summary ---
Author Organization [facility] Address [address] [place] [address] Care Team Providers Care Jewelry Sales Representative Name Role Phone Alicia Rayo DO Primary Care Provider Unavaila Lin Crowe MD Primary Care Provider Kandis Lan MD Unavailable Tim Newton DO Unavailable Unavailable Reason for Visit * Reason Onset Date Comments Advice 03/10/2022 Post gallbladder surgery. Encounter Details Date Type Department Care Team Description 03/10/2022 Telephone General Surgery - [place] [address] [address] Amber Ribera PA-C [address] [address] Advice (Post gallbladder surgery. ) Social History Tobacco Use Types Packs/Day [...] suspected to have Coronavirus/COVID-19? No / Unsure 02/17/2022 1:57 PM EST documented as of this encounter Miscellaneous Notes * Telephone Encounter - Amber Ribera PA-C - 03/11/2022 12:31 PM EST Thanks, Ekta The patient and I discussed this at length at her previous appointment, and again when she called the office right away following the office visit with the same questions. She is quite anxious at baseline, particularly when it comes to diet and her bowels. She needs to follow up with GI specialist and PCP as you mentioned. If she would like to follow up with general surgery I recommend she see her surgeon, although I do not think this is necessary as none of these complaints seem gen surg related. As always if symptoms are severe, worsening, or concerning present to the ED for further evaluation. Thanks * Telephone Encounter - Ekta Michaels - 03/10/2022 2:43 PM EST Patient called complaining of pain right side under breast where she had her gallbladder removed. She says it started last week pain on and off and while having the pain she has a bowel movement and it seems to go away. She has a lot of pressure in her chest as well when this happens. I did read Amber's note to her letting her know that from a general surgery standpoint she does not need to follow any specific diet and has no restrictions, however I recommend she continue to work with nutrition given she appears to have many food sensitivities. Should she experience continued heart burn Irecommend following up with her PCP and/or GI for further evaluation and management as this is no lo nger associated with her gallbladder . I spoke with the patient for over 35 minutes and tried to explain to her that she needs to see her PCP on Monday and follow up with GI on 03/22 and if pain persists she needs to go to the ED. She admitted that she googled information online and she does have a lot of anxiety. I told her that I am not clinical and I don't have the answers. She is asking for Amber to contact her when she is available. documented in this encounter Plan of Treatment Not on file documented as of this encounter Visit Diagnoses Not on filedocumented in this encounter Care Teams Jewelry Sales Representative Relationship Specialty Start Date End Date Alicia Rayo DO PCP - General Internal Medicine 06/04/21 07/23/23 Lin Eubanks MD [address] [place] [address] PCP - General Internal Medicine 07/24/23 Kandis Lan MD [address] [place] [address] Endocrinology 11/07/23 Tim Newton DO [address] [place] [address] Referring Physician Physiatry 11/07/23 víctor heard Specialist Gastroenterology 11/07/23 [facility] urology Specialist Urology 11/07/23 documented as of this encounter
--- OUTSIDE RECORDS SUMMARY | 2024-09-30 15:28 | XMS_ITS | Encounter Summary ---
Author Organization [facility] Address [address] [place] [address] Care Team Providers Care Er Manager Name Role Phone Alicia Rayo DO Primary Care Provider Unavaila Lin Crowe MD Primary Care Provider Kandis Lan MD Unavailable Tim Newton DO Unavailable Unavailable Encounter Details Date Type Department Care Team Description 05/09/2022 Policy Officer Report Medical Records [address] [place] [address] Amanda Lucio [address] [place] [address] Social History Tobacco Use Types Packs/Day Years [...] on filedocumented in this encounter Care Teams Er Manager Relationship Specialty Start Date End Date Alicia Rayo DO PCP - General Internal Medicine 06/04/21 07/23/23 Lin Eubanks MD [address] [place] [address] PCP - General Internal Medicine 07/24/23 Kandis Lan MD [address] [place] [address] Endocrinology 11/07/23 Tim Newton DO [address] [place] [address] Referring Physician Physiatry 11/07/23 víctor heard Specialist Gastroenterology 11/07/23 [facility] urology Specialist Urology 11/07/23 documented as of this encounter
--- OUTSIDE RECORDS SUMMARY | 2024-09-30 15:28 | XMS_ITS | Encounter Summary ---
Author Organization [facility] Address [address] [place] [address] Care Team Providers Care Paste Mixer Liquid Name Role Phone Bobbi Walton MD Primary Care Provider Unavaila Chetna Ortiz MD Primary Care Provide r Unavailable Alicia Rayo DO Primary Care Provider Unavaila Lin Crowe MD Primary Care Provider + [phone] Kandis Lan MD Unavailable Tim Newton DO Unavailable Unavailable Encounter Details Date Type Department Care Team Description 01/23/2016 Pt. Non Urgent Medical Question Medicine/Pediatrics - [address] [phone] Bobbi Walton MD Social History Tobacco Use Types Packs/Day Years Used Date Smoking Tobacco: Former Cigarettes 0.5 1 03/05/1970 - 02/06/1990 Smokeless Tobacco: Never Comments:15 yrs ago Alcohol Use Standard Drinks/Week Comments Yes 0 (1 standard drink = 0.6 oz pure alcohol) 2-3 drinks intermittently (on occasions) Alcohol Habits Answer Date Recorded How often [...] on file documented as of this encounter Progress Notes * Carolina Camara RN - 01/25/2016 9:41 AM ESTFrom: Padmini Garrett To: Bobbi Mann MD Sent: 01/23/2016 3:08 PM EST Subject: Question regarding URINE CULTURE I have a question about URINE CULTURE resulted on 01/20/16, 10:41 AM. documented in this encounter Plan of Treatment Not on file documented as of this encounter Visit Diagnoses Not on filedocumented in this encounter Care Teams Paste Mixer Liquid Relationship Specialty Start Date End Date Bobbi Walton MD PCP - General Internal Medicine 12/19/14 05/05/20 Chetna Coats MD PCP - General Internal Medicine 05/06/20 06/03/21 Alicia Rayo DO PCP - General Internal Medicine 06/04/21 07/23/23 Lin Eubanks MD [address] [place] [address] PCP - General Internal Medicine 07/24/23 Kandis Lan MD [address] [place] [address] Endocrinology 11/07/23 Tim Newton DO [address] [place] [address] Referring Physician Physiatry 11/07/23 víctor heard Specialist Gastroenterology 11/07/23 [facility] urology Specialist Urology 11/07/23 documented as of this encounter
--- OUTSIDE RECORDS SUMMARY | 2024-09-30 15:28 | XMS_ITS | Encounter Summary ---
Author Organization [facility] Address [address] [place] [address] Care Team Providers Care Honing Machine Operator Production Name Role Phone Alicia Rayo DO Primary Care Provider Unavaila Lin Crowe MD Primary Care Provider Kandis Lan MD Unavailable Tim Newton DO Unavailable Unavailable Encounter Details Date Type Department Care Team Description 02/11/2022 Orders Only Medical Records [address] [place] [address] Tyler Lovelace MD [address] [place] [address] Social History Tobacco Use Types Packs/Day Years [...] Name Priority Date/Time Associated Diagnosis Comments OUTSIDE PATHOLOGY Routine 02/02/2022 documented in this encounter Results * OUTSIDE PATHOLOGY (02/02/2022) Tyler Lovelace MD OUTSIDE LAB documented in this encounter Visit Diagnoses Not on filedocumented in this encounter Care Teams Honing Machine Operator Production Relationship Specialty Start Date End Date Alicia Rayo DO PCP - General Internal Medicine 06/04/21 07/23/23 Lin Eubanks MD [address] [place] [address] PCP - General Internal Medicine 07/24/23 Kandis Lan MD [address] [place] [address] Endocrinology 11/07/23 Tim Newton DO [address] [place] [address] Referring Physician Physiatry 11/07/23 víctor heard Specialist Gastroenterology 11/07/23 [facility] urology Specialist Urology 11/07/23 documented as of this encounter
--- OUTSIDE RECORDS SUMMARY | 2024-09-30 15:28 | XMS_ITS | Encounter Summary ---
Author Organization [facility] Address [address] [place] [address] Care Team Providers Care Framing And Hanging Name Role Phone Lin Eubanks MD Primary Care Provider Reason for Visit * Reason Onset Date Comments medication refill request 09/11/2024 Encounter Details Date Type Department Care Team (Late st Contact Info) Description 09/11/2024 Telephone Gastroenterology - [place] [address] [facility] 175 [facility] [address] [place] [address] Luis Matson MD [address] [facility] [address] [place] [address] Social History Tobacco Use Types Packs/Day Years [...] for your loved ones. For example, child support specialist or elderly care for an older adult? [...] on file Sexual Orientation Not on file documented as of this encounter Progress Notes * Gabriela Salazar - 09/11/2024 4:28 PM EDT Received refill request from patient's pharmacy for: Budesonide EC 3mg capsule (Not on current on discontinued med list) Previous Francis patient, called patient and LM to schedule appt with new provider documented in this encounter Plan of Treatment Upcoming Encounters Date Type Department Care Team (Late st Contact Info) Description 11/22/2024 2:00 PM EDT Office Visit Adult Medicine - [place] [address] [place] [address] Lin Eubanks MD [address] [place] [address] 12/17/2024 2:40 PM EST Office Visit Gastroenterology - [place] [address] [place] [address] [facility] [address] [place] [phone] Moriah Kang NP [address] [place] [address] 01/13/2025 3:00 PM EST Appointment Radiology Department [address] [phone] documented as of this encounter Visit Diagnoses Not on filedocumented in this encounter Additional Health Concerns Assessment Noted Time PHQ-9 Depression Total Score: 0 01/24/20 5:06 AM EST documented as of this encounter Care Teams Framing And Hanging Relationship Specialty Start Date End Date Lin Eubanks MD [address] [place] [address] PCP - General Internal Medicine 12/11/23 documented as of this encounter
--- OUTSIDE RECORDS SUMMARY | 2024-09-30 15:28 | XMS_ITS | Encounter Summary ---
Author Organization [facility] Address [address] [place] [address] Care Team Providers Care Electrical Fitter Name Role Phone Alicia Rayo DO Primary Care Provider Unavaila Lin Crowe MD Primary Care Provider Kandis Lan MD Unavailable Tim Newton DO Unavailable Unavailable Encounter Details Date Type Department Care Team Description 05/18/2022 Telephone Adult Medicine - [address] [address] Alicia Rayo DO Social History Tobacco Use Types Packs/Day Years [...] suspected to have Coronavirus/COVID-19? No / Unsure 05/17/2022 2:03 PM EDT documented as of this encounter Plan of Treatment Not on file documented as of this encounter Visit Diagnoses Not on filedocumented in this encounter Care Teams Electrical Fitter Relationship Specialty Start Date End Date Alicia Rayo DO PCP - General Internal Medicine 06/04/21 07/23/23 Lin Eubanks MD [address] [place] [address] PCP - General Internal Medicine 07/24/23 Kandis Lan MD [address] [place] [address] Endocrinology 11/07/23 Tim Newton DO [address] [place] [address] Referring Physician Physiatry 11/07/23 víctor heard Specialist Gastroenterology 11/07/23 [facility] urology Specialist Urology 11/07/23 documented as of this encounter
--- OUTSIDE RECORDS SUMMARY | 2024-09-30 15:28 | XMS_ITS | Encounter Summary ---
Author Organization [facility] Address [address] [facility] 7 [place] [address] Care Team Providers Care Demographer Name Role Phone PcpDarrell Unassigned Primary Care Provider Rachell villagomezailkj Encounter Details Date Type Department Care Team (Latest Contact Info) Description 10/28/2019 Abstract [facility] CONVERSIONS Dental, Provider, DDS Social [...] Description 10/01/2024 3:00 PM EDT Office Visit [facility] DENTAL [address] [place] [address] Jessica Maldonado LLD [address] [place] [address] 10/22/2024 3:00 PM EDT Office Visit [facility] DENTAL [address] [place] [address] Jessica Maldonado LLD [address] [place] [address] 11/12/2024 3:00 PM EDT Office Visit [facility] DENTAL [address] [place] [address] Jessica Maldonado LLD [address] [place] [address] 02/05/2025 2:00 PM EST Office Visit Darrell [facility] DENTAL [address] [place] [address] Sivakumar Mendieta documented as of this encounter Visit Diagnoses Not on filedocumented in this encounter Care Teams Demographer Relationship Specialty Start Date End Date PcpDarrell Unassigned PCP - General Family Medicine 06/06/22 documented as of this encounter
--- OUTSIDE RECORDS SUMMARY | 2024-09-30 15:28 | XMS_ITS | Encounter Summary ---
Author Organization [facility] Address [address] [place] [address] Care Team Providers Care Soldering Machine Operator Name Role Phone Lin Eubanks MD Primary Care Provider + [phone] Kandis Lan MD Unavailable Tim Newton DO Unavailable Unavailable Reason for Visit * Reason Onset Date Comments medication problems 08/07/2023 mupirocin (B ACTROBAN) 2 % ointment Encounter Details Date Type Department Care Team Description 08/07/2023 Telephone Adult Medicine - [place] [address] [place] [address] Lin Eubanks MD [address] [place] [address] medication problems (mupirocin (BACTROBAN) 2 % ointment) Social History Tobacco Use Types Packs/Day Years [...] Miscellaneous Notes * Telephone Encounter - Reanna Avery L.P.N. - 08/14/2023 10:00 AM EDT Patient notified * Telephone Encounter - Carmen London PA-C - 08/14/2023 9:26 AM EDT If it seems as though the cold sore is improving with the mupirocin, she can continue to use it * Telephone Encounter - Teodora Blum M.A. - 08/07/2023 1:55 PM EDT Pt has not established with PCP / Care Team - last seen 07/31/23 with Carmen London PA-C - can wait for provider return to office to review * Telephone Encounter - Mary Jiménez - 08/07/2023 10:32 AM EDT Who is calling? The patient Name of the medication mupirocin (BACTROBAN) 2 % ointment What is the specific problem or interaction? Pt states she was seen on 07/30 for cold sore : states she has completed the oral medication : pt states she still sees the cold sore: is looking to see ifit is okay to keep using the ointment until cold sore is gone If the patient is having a problem with taking the med - how long has the problem been going on? N/A documented in this encounter Plan of Treatment Not on file documented as of this encounter Visit Diagnoses Not on filedocumented in this encounter Care Teams Soldering Machine Operator Relationship Specialty Start Date End Date Lin Eubanks MD [facility] [place] [address] PCP - General Internal Medicine 07/24/23 Kandis Lan MD [address] [place] [address] Endocrinology 11/07/23 Tim Newton DO [address] [place] [address] Referring Physician Physiatry 11/07/23 víctor heard Specialist Gastroenterology 11/07/23 [facility] urology Specialist Urology 11/07/23 documented as of this encounter
--- OUTSIDE RECORDS SUMMARY | 2024-09-30 15:28 | XMS_ITS | Encounter Summary ---
Author Organization [facility] Address [address] [facility] 7 [place] [address] Care Team Providers Care Cellular Equipment Repairer Name Role Phone PcpDarrell Unassigned Primary Care Provider Rachell villagomezailkj Encounter Details Date Type Department Care Team (Latest Contact Info) Description 08/30/2018 Abstract [facility] CONVERSION[facility] Dental, Provider, DDS Social [...] Description 10/01/2024 3:00 PM EDT Office Visit [facility] DENTAL [address] [place] [address] Jessica Maldonado LLD [address] [place] [address] 10/22/2024 3:00 PM EDT Office Visit [facility] DENTAL [address] [place] [address] Jessica Maldonado LLD [address] [place] [address] 11/12/2024 3:00 PM EDT Office Visit [facility] DENTAL [address] [place] [address] Jessica Maldonado LLD [address] [place] [address] 02/05/2025 2:00 PM EST Office Visit Darrell [facility] DENTAL [address] [place] [address] Sivakumar Mendieta documented as of this encounter Visit Diagnoses Not on filedocumented in this encounter Care Teams Cellular Equipment Repairer Relationship Specialty Start Date End Date PcpDarrell Unassigned PCP - General Family Medicine 06/06/22 documented as of this encounter
--- OUTSIDE RECORDS SUMMARY | 2024-09-30 15:28 | XMS_ITS | Encounter Summary ---
Author Organization [facility] Address [address] [place] [address] Care Team Providers Care Medical Case Worker Name Role Phone Bobbi Walton MD Primary Care Provider Unavaila Chetna Ortiz MD Primary Care Provide r Unavailable Alicia Rayo DO Primary Care Provider Unavaila Lin Crowe MD Primary Care Provider + [phone] Kandis Lan MD Unavailable Tim Newton DO Unavailable Unavailable Encounter Details Date Type Department Care Team Description 06/10/2019 Orders Only Radiology - [address] [address] Bobbi Walton MD Social History Tobacco Use [...] filedocumented in this encounter Care Teams Medical Case Worker Relationship Specialty Start Date End Date Bobbi Walton MD PCP - General Internal Medicine 12/19/14 05/05/20 Chetna Coats MD PCP - General Internal Medicine 05/06/20 06/03/21 Alicia Rayo DO PCP - General Internal Medicine 06/04/21 07/23/23 Lin Eubanks MD [address] [place] [address] PCP - General Internal Medicine 07/24/23 Kandis Lan MD [address] [place] [address] Endocrinology 11/07/23 Tim Newton DO [address] [place] [address] Referring Physician Physiatry 11/07/23 víctor heard Specialist Gastroenterology 11/07/23 [facility] urology Specialist Urology 11/07/23 documented as of this encounter
--- OUTSIDE RECORDS SUMMARY | 2024-09-30 15:28 | XMS_ITS | Encounter Summary ---
Author Organization [facility] Address [address] [place] [address] Care Team Providers Care Parachute Taper Name Role Phone Lin Eubanks MD Primary Care Provider [phone] Kandis Lan MD Unavailable Tim Newton DO Unavailable Unavailable Reason for Visit * Reason Onset Date Comments Special Procedure 10/11/2023 Encounter Details Date Type Department Care Team Description 10/11/2023 Telephone Gastroenterology - [address] [place] [address] Francis Kwong PA-C Special Procedure Social History Tobacco Use Types Packs/Day Years [...] Telephone Encounter - Imani De Leon - 10/23/2023 10:39 AM EDT Booked Barium Swallow at [address] [facility] for patient on December 26 at 8:30am w/ arrival at 8am.Called the patient to notify of appointment details, including nothing to eat/drink after midnight.I also mailed an appointment letter. Order has been faxed to [phone]. * Telephone Encounter - Francis Kwong PA-C - 10/22/2023 5:22 PM EDT Patient is having issues with swallowing and will order a barium swallow. * Telephone Encounter - Imani De Leon - 10/13/2023 2:05 PM EDT Francis is not in the office until Monday. She will advise when she returns. * Telephone Encounter - Tova Cordero - 10/13/2023 12:23 PM EDT Patient calling to follow up on this * Telephone Encounter - Susu Magallon - 10/11/2023 1:08 PM EDT Patient is requesting a barrium swallow had one last January having pain in the esophagus and neck, please advise documented in this encounter Plan of Treatment Not on file documented as of this encounter Visit Diagnoses Diagnosis Throat pain in adult- Primary documented in this encounter Care Teams Parachute Taper Relationship Specialty Start Date End Date Lin Eubanks MD [address] [place] [address] PCP - General Internal Medicine 07/24/23 Kandis Lan MD [address] [place] [address] Endocrinology 11/07/23 Tim Newton DO [address] [place] [address] Referring Physician Physiatry 11/07/23 francis kwong Specialist Gastroenterology 11/07/23 [facility] urology Specialist Urology 11/07/23 documented as of this encounter
--- OUTSIDE RECORDS SUMMARY | 2024-09-30 15:28 | XMS_ITS | Encounter Summary ---
Author Organization [employer] [facility] Address [address] [facility] 7 [place] [address] Care Team Providers Care Glass Technician Name Role Phone PcpDarrell Unassigned Primary Care Provider Rachell tuttle Encounter Details Date Type Department Care Team (Latest Contact Info) Description 04/30/2020 Abstract [facility] CONVERSIONS Dental, Provider, DDS Social [...] Description 10/01/2024 3:00 PM EDT Office Visit [facility] DENTAL [address] [place] [address] Jessica Maldonado LLD [address] [place] [address] 10/22/2024 3:00 PM EDT Office Visit [facility] DENTAL [address] [place] [address] Jessica Maldonado LLD [address] [place] [address] 11/12/2024 3:00 PM EDT Office Visit [facility] DENTAL [address] [place] [address] Jessica Maldonado LLD [address] [place] [address] 02/05/2025 2:00 PM EST Office Visit Darrell [facility] DENTAL [address] [place] [address] Sivakumar Mendieta documented as of this encounter Visit Diagnoses Not on filedocumented in this encounter Care Teams Glass Technician Relationship Specialty Start Date End Date PcpDarrell Unassigned PCP - General Family Medicine 06/06/22 documented as of this encounter
--- OUTSIDE RECORDS SUMMARY | 2024-09-30 15:28 | XMS_ITS | Encounter Summary ---
Author Organization [facility] Address [address] [place] [address] Care Team Providers Care Microfilm Equipment Inspector Name Role Phone Alicia Rayo DO Primary Care Provider Unavaila Lin Crowe MD Primary Care Provider Kandis Lan MD Unavailable Tim Newton DO Unavailable Unavailable Encounter Details Date Type Department Care Team Description 02/21/2022 Aircraft Ordnance Systems Mechanic Report Medical Records [address] [place] [address] Amanda Lucio 8 [place] [address] Social History Tobacco Use Types Packs/Day Years [...] on filedocumented in this encounter Care Teams Microfilm Equipment Inspector Relationship Specialty Start Date End Date Alicia Rayo DO PCP - General Internal Medicine 06/04/21 07/23/23 Lin Eubanks MD [address] [place] [address] PCP - General Internal Medicine 07/24/23 Kandis Lan MD [address] [place] [address] Endocrinology 11/07/23 Tim Newton DO [address] [place] [address] Referring Physician Physiatry 11/07/23 víctor heard Specialist Gastroenterology 11/07/23 [facility] urology Specialist Urology 11/07/23 documented as of this encounter
--- OUTSIDE RECORDS SUMMARY | 2024-09-30 15:28 | XMS_ITS | Encounter Summary ---
Author Organization [facility] Address [address] [place] [address] Care Team Providers Care Title Manager Name Role Phone Alicia Rayo DO Primary Care Provider Unavaila Lin Crowe MD Primary Care Provider Kandis Lan MD Unavailable Tim Newton DO Unavailable Unavailable Encounter Details Date Type Department Care Team Description 04/06/2022 Cathode Ray Tube Salvage Processor Report Medical Records [address] [place] [address] Amanda Lucio 8 [place] [address] Social History Tobacco Use Types Packs/Day Years [...] suspected to have Coronavirus/COVID-19? No / Unsure 04/05/2022 2:25 PM EST documented as of this encounter Plan of Treatment Not on file documented as of this encounter Visit Diagnoses Not on filedocumented in this encounter Care Teams Title Manager Relationship Specialty Start Date End Date Alicia Rayo DO PCP - General Internal Medicine 06/04/21 07/23/23 Lin Eubanks MD [address] [place] [address] PCP - General Internal Medicine 07/24/23 Kandis Lan MD [address] [place] [address] Endocrinology 11/07/23 Tim Newton DO [address] [place] [address] Referring Physician Physiatry 11/07/23 víctor heard Specialist Gastroenterology 11/07/23 [facility] urology Specialist Urology 11/07/23 documented as of this encounter
--- OUTSIDE RECORDS SUMMARY | 2024-09-30 15:28 | XMS_ITS | Encounter Summary ---
Author Organization [facility] Address [address] [place] [address] Care Team Providers Care Grease Worker Name Role Phone Lin Eubanks MD Primary Care Provider [phone] Kandis Lan MD Unavailable Tim Newton DO Unavailable Unavailable Encounter Details Date Type Department Care Team Description 09/14/2023 Orders Only Radiology - [place] [address] [place] [address] Lin Eubanks MD [address] [place] [address] Social History Tobacco Use Types Packs/Day Years [...] on filedocumented in this encounter Care Teams Grease Worker Relationship Specialty Start Date End Date Lin Eubanks MD [address] [place] [address] PCP - General Internal Medicine 07/24/23 Kandis Lan MD [address] [place] [address] Endocrinology 11/07/23 Tim Newton DO [address] [place] [address] Referring Physician Physiatry 11/07/23 víctor heard Specialist Gastroenterology 11/07/23 [facility] urology Specialist Urology 11/07/23 documented as of this encounter
--- OUTSIDE RECORDS SUMMARY | 2024-09-30 15:28 | XMS_ITS | Encounter Summary ---
Author Organization [facility] Address [address] [place] [address] Care Team Providers Care Pumping Plant Operator Name Role Phone Alicia Rayo DO Primary Care Provider Unavaila Lin Crowe MD Primary Care Provider Kandis Lan MD Unavailable Tim Newton DO Unavailable Unavailable Reason for Visit * Reason Onset Date Comments Advice 02/17/2022 Encounter Details Date Type Department Care Team Description 02/17/2022 Telephone General Surgery - [place] [address] [address] Amber Ribera PA-C [address] [address] Advice Social History Tobacco Use Types Packs/Day Years [...] Telephone Encounter - Amber Ribera PA-C - 02/17/2022 4:19 PM EST Pt called back. Several questions answered to satisfaction. * Telephone Encounter - Abi Tyson - 02/17/2022 3:57 PM EST Pt requesting call back, has questions about showering. documented in this encounter Plan of Treatment Not on file documented as of this encounter Visit Diagnoses Not on filedocumented in this encounter Care Teams Pumping Plant Operator Relationship Specialty Start Date End Date Alicia Rayo DO PCP - General Internal Medicine 06/04/21 07/23/23 Lin Eubanks MD [address] [place] [address] PCP - General Internal Medicine 07/24/23 Kandis Lan MD [address] [place] [address] Endocrinology 11/07/23 Tim Newton DO [address] [place] [address] Referring Physician Physiatry 11/07/23 víctor heard Specialist Gastroenterology 11/07/23 [facility] urology Specialist Urology 11/07/23 documented as of this encounter
--- OUTSIDE RECORDS SUMMARY | 2024-09-30 15:28 | XMS_ITS | Encounter Summary ---
Author Organization [facility] Address [address] [place] [address] Care Team Providers Care Board Member Name Role Phone Alicia Rayo DO Primary Care Provider Unavaila Lin Crowe MD Primary Care Provider [phone] Kandis Lan MD Unavailable Tim Newton DO Unavailable Unavailable Reason for Visit * Reason Comments E-prescribe Rx Request Encounter Details Date Type Department Care Team Description 06/15/2022 Refill Gastroenterology [address] [place] [address] Fernando Cleaning PA-C E-prescribe Rx [...] Telephone Encounter - Mable Rice M.A. - 06/15/2022 7:32 AM EDT JOANNE 04/01/22, gi f/up 08/22/22 Flor[place]ma documented in this encounter Plan of Treatment Not on file documented as of this encounter Visit Diagnoses Not on filedocumented in this encounter Care Teams Board Member Relationship Specialty Start Date End Date Alicia Rayo DO PCP - General Internal Medicine 06/04/21 07/23/23 Lin Eubanks MD [facility] [place] [address] PCP - General Internal Medicine 07/24/23 Kandis Lan MD [address] [place] [address] Endocrinology 11/07/23 Tim Newton DO [address] [place] [address] Referring Physician Physiatry 11/07/23 víctor heard Specialist Gastroenterology 11/07/23 [facility] urology Specialist Urology 11/07/23 documented as of this encounter
--- OUTSIDE RECORDS SUMMARY | 2024-09-30 15:28 | XMS_ITS | Encounter Summary ---
Author Organization [facility] Address [address] [facility] 7 [place] [address] Care Team Providers Care Light Bulb Assembler Name Role Phone PcpDarrell Unassigned Primary Care Provider Rachell tuttle Encounter Details Date Type Department Care Team (Latest Contact Info) Description 11/09/2020 Abstract [facility] CONVERSIONS Dental, Provider, DDS Social [...] Description 10/01/2024 3:00 PM EDT Office Visit [facility] [address] [place] [address] Jessica Maldonado LLD [address] [place] [address] 10/22/2024 3:00 PM EDT Office Visit [facility] [address] [place] [address] Jessica Maldonado LLD [address] [place] [address] 11/12/2024 3:00 PM EDT Office Visit [facility] [address] [place] [address] Jessica Maldonado LLD [address] [place] [address] 02/05/2025 2:00 PM EST Office Visit Darrell [facility] [address] [place] [address] Sivakumar Mendieta documented as of this encounter Visit Diagnoses Not on filedocumented in this encounter Care Teams Light Bulb Assembler Relationship Specialty Start Date End Date PcpDarrell Unassigned PCP - General Family Medicine 06/06/22 documented as of this encounter
--- OUTSIDE RECORDS SUMMARY | 2024-09-30 15:28 | XMS_ITS | Encounter Summary ---
Author Organization [facility] Address [address] [place] [address] Care Team Providers Care Carrier Operator Name Role Phone Bobbi Walton MD Primary Care Provider Unavaila Chetna Ortiz MD Primary Care Provide r Unavailable Alicia Rayo DO Primary Care Provider Unavaila Lin Crowe MD Primary Care Provider [phone] Kandis Lan MD Unavailable Tim Newton DO Unavailable Unavailable Reason for Visit * Reason Onset Date Comments Medication 10/18/2016 Encounter Details Date Type Department Care Team Description 10/18/2016 Telephone Gastroenterology - [address] [address] Azeem Conway MD Medication Social History Tobacco Use Types Packs/Day Years Used Date Smoking Tobacco: Former Cigarettes 0.5 1 03/05/1970 - 02/06/1990 Smokeless Tobacco: Never Comments:15 yrs ago Alcohol Use Standard Drinks/Week Comments No 0 [...] Telephone Encounter - Azeem Conway MD - 10/18/2016 11:54 AM EDT Proceed as scheduled. * Telephone Encounter - Fatimah Marie - 10/18/2016 11:49 AM EDT Pt calling back she says when she goes is all clear * Telephone Encounter - Halie Burns - 10/18/2016 11:05 AM EDT Patient started the second half of moviprep 9:00am (or little before) this morning and still has not finished, still has about 8 oz left, patient started to go by the moviprep directions on bottle instead of the instructions [facility] gave her. Patient states that when she goes to the bathroom the liquid is yellowish with little bits of brown (here and there). Due to come in at 1:30pm. documented in this encounter Plan of Treatment Not on file documented as of this encounter Visit Diagnoses Not on filedocumented in this encounter Care Teams Carrier Operator Relationship Specialty Start Date End Date Bobbi Walton MD PCP - General Internal Medicine 12/19/14 05/05/20 Chetna Coats MD PCP - General Internal Medicine 05/06/20 06/03/21 Alicia Rayo DO PCP - General Internal Medicine 06/04/21 07/23/23 Lin Eubanks MD [address] [place] [address] PCP - General Internal Medicine 07/24/23 Kandis Lan MD [address] [place] [address] Endocrinology 11/07/23 Tim Newton DO [address] [place] [address] Referring Physician Physiatry 11/07/23 víctor heard Specialist Gastroenterology 11/07/23 [facility] urology Specialist Urology 11/07/23 documented as of this encounter
--- OUTSIDE RECORDS SUMMARY | 2024-09-30 15:28 | XMS_ITS | Encounter Summary ---
Author Organization [facility] Address [address] [place] [address] Care Team Providers Care Machine Hamper Maker Name Role Phone Alicia Rayo DO Primary Care Provider Unavaila Lin Crowe MD Primary Care Provider [phone] Kandis Lan MD Unavailable Tim Newton DO Unavailable Unavailable Reason for Visit * Reason Comments E-prescribe Rx Request Encounter Details Date Type Department Care Team Description 03/08/2022 Refill Gastroenterology [address] [place] [address] Fernando Cleaning PA-C E-prescribe Rx [...] encounter Miscellaneous Notes * Telephone Encounter - China Bates - 03/08/2022 9:08 AM EST Chris- 01/04/22 documented in this encounter Plan of Treatment Not on file documented as of this encounter Visit Diagnoses Not on filedocumented in this encounter Care Teams Machine Hamper Maker Relationship Specialty Start Date End Date Alicia Rayo DO PCP - General Internal Medicine 06/04/21 07/23/23 Lin Eubanks MD [address] [place] [address] PCP - General Internal Medicine 07/24/23 Kandis Lan MD [address] [place] [address] Endocrinology 11/07/23 Tim Newton DO [address] [place] [address] Referring Physician Physiatry 11/07/23 víctor heard Specialist Gastroenterology 11/07/23 [facility] urology Specialist Urology 11/07/23 documented as of this encounter
--- OUTSIDE RECORDS SUMMARY | 2024-09-30 15:28 | XMS_ITS | Encounter Summary ---
Author Organization [facility] Address [address] [place] [address] Care Team Providers Care Rugby Union Footballer Name Role Phone Alicia Rayo DO Primary Care Provider Unavaila Lin Crowe MD Primary Care Provider [phone] Kandis Lan MD Unavailable Tim Newton DO Unavailable Unavailable Encounter Details Date Type Department Care Team Description 06/13/2022 Trailer Chief Report Medical Records [address] [place] [address] Kris Badillo MD, MD Social History Tobacco Use Types Packs/Day [...] on filedocumented in this encounter Care Teams Rugby Union Footballer Relationship Specialty Start Date End Date Alicia Rayo DO PCP - General Internal Medicine 06/04/21 07/23/23 Lin Eubanks MD [address] [place] [address] PCP - General Internal Medicine 07/24/23 Kandis Lan MD [address] [place] [address] Endocrinology 11/07/23 Tim Newton DO [address] [place] [address] Referring Physician Physiatry 11/07/23 víctor heard Specialist Gastroenterology 11/07/23 [facility] urology Specialist Urology 11/07/23 documented as of this encounter
--- OUTSIDE RECORDS SUMMARY | 2024-09-30 15:28 | XMS_ITS | Encounter Summary ---
Author Organization [facility] Address [address] [place] [address] Care Team Providers Care Bill Checker Name Role Phone Lin Eubanks MD Primary Care Provider [phone] Kandis Lan MD Unavailable Tim Newton DO Unavailable Unavailable Reason for Visit * Reason Onset Date Comments medication problems 08/11/2023 Encounter Details Date Type Department Care Team Description 08/11/2023 Telephone Adult Medicine - [place] [address] [place] [address] Lin Eubanks MD [address] [place] [address] medication problems Social History Tobacco Use Types [...] Miscellaneous Notes * Telephone Encounter - Susu Sanchez M.A. - 11/16/2023 8:27 AM EDT Was discontinued on 09/19/23 * Telephone Encounter - Susu Sanchez M.A. - 08/15/2023 9:23 AM EDT I dont see where this prior authorization was done but there is already a denial. Will need to call[employer] to appeal it. * Telephone Encounter - Lilian Rodriguez - 08/14/2023 1:35 PM EDT Fax was received from [employer] Medicare part D- dicyclomine (BENTYL) 20 MG tablet- PA was denied. Information at check out with Trish if needed to reivew ( orange folder) * Telephone Encounter - Denny Kaye - 08/11/2023 10:24 AM EDT Who is calling? The patient Name of the medication dicyclomine (BENTYL) 20 MG tablet What is the specific problem or interaction? Pt is still waiting on this medication. States a priorauth is needed and that one was done but she is waiting on ins. If the patient is having a problem with taking the med - how long has the problem been going on? N/A documented in this encounter Plan of Treatment Not on file documented as of this encounter Visit Diagnoses Not on filedocumented in this encounter Care Teams Bill Checker Relationship Specialty Start Date End Date Lin Eubanks MD [address] [place] [address] PCP - General Internal Medicine 07/24/23 Kandis Lan MD [address] [place] [address] Endocrinology 11/07/23 Tim Newton DO [address] [place] [address] Referring Physician Physiatry 11/07/23 víctor heard Specialist Gastroenterology 11/07/23 [facility] urology Specialist Urology 11/07/23 documented as of this encounter
--- OUTSIDE RECORDS SUMMARY | 2024-09-30 15:28 | XMS_ITS | Encounter Summary ---
Author Organization [facility] Address [address] [place] [address] Care Team Providers Care Metallurgy Teacher Name Role Phone Alicia Rayo DO Primary Care Provider Unavaila Lin Crowe MD Primary Care Provider Kandis Lan MD Unavailable Tim Newton DO Unavailable Unavailable Encounter Details Date Type Department Care Team Description 04/07/2022 Telephone Cardio PVCA Diag Testing [address] [facility] [address] [place] [address] Kapil Savage NP [address] [place] [address] Social History Tobacco Use Types Packs/Day Years [...] on filedocumented in this encounter Care Teams Metallurgy Teacher Relationship Specialty Start Date End Date Alicia Rayo DO PCP - General Internal Medicine 06/04/21 07/23/23 Lin Eubanks MD [address] [place] [address] PCP - General Internal Medicine 07/24/23 Kandis Lan MD [address] [place] [address] Endocrinology 11/07/23 Tim Newton DO [address] [place] [address] Referring Physician Physiatry 11/07/23 víctor heard Specialist Gastroenterology 11/07/23 [facility] urology Specialist Urology 11/07/23 documented as of this encounter
--- OUTSIDE RECORDS SUMMARY | 2024-09-30 15:28 | XMS_ITS | Clinical Summary ---
Author Organization [employer] Address [address] [facility] 7[address] [place] [address] Care Team Providers Care Investment Banking Associate Name Role Phone PcpDarrell Unassigned Primary Care Provider U navailable Allergies Active Allergy Reactions Criticality Noted Date Comments Cephalexin Swelling High 09/05/2005 Penicillins Rash High 09/05/2005 Sulfa Antibiotics 08/22/2005 Medications hyoscyamine (Anaspaz) 0.125 MG disintegrating tablet Take 0.125 mg by mouth. 05/10/19 23 Active aluminum-magnesium hydroxide-simethic one (Maalox MAX) 400-400-40 MG/5ML suspension Antacid Plus Anti-Gas 400 mg-400 mg-40 mg/5 mL oral suspension 30 ML BY MOUTH TWICE A DAY NEEDED FOR DIGESTIVE AID 03/04/19 23 Active atorvastatin (Lipitor) 10 MG tablet atorvastatin 10 mg tablet TAKE 1 TABLET BY MOUTH EVERY DAY 03/23/19 23 Active atenolol (Tenormin) 50 MG tablet Take 25 mg by mouth in the morning. 05/07/19 23 Active famotidine (Pepcid) 40 MG tablet famotidine 40 mg tablet 03/08/19 23 Active triamcinolone (Kenalog) 0.1 % cream triamcinolone acetonide 0.1 % topical cream APPLY TO AFFECTED AREA TWICE A DAY NEEDED 08/28/19 22 Active sucralfate (Carafate) 1 GM/10ML suspension TAKE 10 ML BY MOUTH 4 TIMES DAILY FOR 30 DAYS. 04/01/19 23 Active GaviLAX 17 GM/SCOOP powder TAKE 17 G BY MOUTH DAILY NEEDED FOR CONSTIPATION. 10/01/19 22 Active pantoprazole (ProtoNix) 20 MG EC tablet TAKE 1 TABLET BY MOUTH EVERY MORNING (BEFORE BREAKFAST) 04/29/19 23 Active meclizine (Antivert) 25 MG tablet meclizine 25 mg tablet TAKE 1 TABLET BY MOUTH 3 TIMES DAILY NEEDED FOR OTHER (DIZZINESS). 09/02/19 22 Active fluticasone (Flonase) 50 MCG/ACT nasal spray PUT 2 SPRAYS IN EACH NOSTRIL TWICE DAILY NEEDED FOR RUNNY NOSE 02/17/19 23 Active Fish Oil-Cholecalcifero l (Fish Oil-Vitamin D) 8691-5337 MG-UNIT capsule Take by mouth. Activ e MULTIPLE VITAMIN PO QD Active oxybutynin XL (Ditropan-XL) 5 MG 24 hr tablet Take 5 mg by mouth in the morning. 06/14/19 23 Active budesonide EC (Entocort EC) 3 MG 24 hr capsule Take 9 mg by mouth Once per day. Active gabapentin (Neurontin) 100 MG capsule TAKE 1 CAPSULE BY MOUTH 3 TIMES A DAY MAY INCREASE TO 3 CAPS 3 TIMES A DAY OVER 10 DAYS TOLERATED Active memantine (Namenda Titration Pack) 28 x 5 MG & 21 x 10 MG tablet pack Use as directed for first month. 01/24/20 24 Active Encounters Date Type Department Care Team Description 07/31/2024 2:00 PM EDT Office Visit Darrell [facility] [address] [place] [address] Sivakumar Mendieta Stage 2 grade B generalized periodontitis per AAP/EFP 2017 classification (Primary Dx); Encounter for dental examination from Last 3 Months Immunizations Immunization Administration Dates Next Due Hep B, adult 12/13/2016,07/07/2016,06/09/2016 INFLUENZA INJECTABLE QUADRIV ALANT CCIIV4 MDCK Multi-dose vial 11/14/2017,12/06/2016 Influenza High-dose Quadriva lent Preservative Free 10/12/2021,10/16/2020 Influenza, High Dose Seasona l, Preservative Free 11/29/2018 Influenza, IIV3, injectable 11/26/2015, 5,12/05/2013 PPD Test 05/18/2001 Pfizer Covid-19 Vaccine 12+ Bivalent 10/26/2021 Pneumococcal Conjugate PCV 13 01/09/2018 Pneumococcal Polysaccharide PPSV23 07/05/2019 Tdap 12/06/2016,09/11/2006 Zoster, live 01/08/2013 Social History Tobacco Use Types Packs/Day Years Used Date Smoking Tobacco: Never Smokeless Tobacco: Never Tobacco Cessation:Counseling Given: Not Answered Alcohol Use Standard Drinks/Week Comments Never 0 (1 standard drink = 0.6 oz pur e alcohol) Comments Unknown Sex and Gender Information Value Date Recorded Sex Assigned at Female 05/24/2022 3:34 PM EDT Legal Sex Female 5:35 PM EDT Gender Identity Female 05/24/2022 3:34 PM EDT Sexual Orientation Choose not to disclose 2022 3:34 PM EDT Last Filed Vital Signs Vital Sign Reading Time Taken Comments Blood Pressure 116/66 07/31/2024 2:11 PM EDT Pulse 59 07/31/2024 2:11 PM EDT Temperature - - Respiratory Rate - - Oxygen Saturation - - Inhaled Oxygen Concentration - - Weight - - Height - - Body Mass Index - - Plan of Treatment Upcoming Encounters Date Type Department Care Team (Late st Contact Info) Description 10/01/2024 3:00 PM EDT Office Visit [facility] DENTAL [address] [place] [address] Jessica Maldonado LLD [address] [place] [address] 10/22/2024 3:00 PM EDT Office Visit [address] [address] Jessica Maldonado LLD [address] [place] [address] 11/12/2024 3:00 PM EDT Office Visit [address] [address] Jessica Maldonado LLD 9 [place] [address] 02/05/2025 2:00 PM EST Office Visit [address] [address] Sivakumar Mendieta Health Maintenance Due Date Last Done Comments CT Colonography 1953 Colonoscopy 1953 Colorectal Cancer Screening 1953 Depression Screening 1953 FIT DNA/Cologuard 1953 FIT 1953 FOBT 1953 Lipid Panel 1953 SDOH Screening 1953 Sigmoidoscopy 1953 Alcohol/Substance Use Screening 1965 Hepatitis C Screening 1971 Hepatitis A Vaccines (1 of 2 - Risk 2-dose series) 01/04/1972 Zoster Vaccines (2 of 3) 03/05/2013 01/08/2013 COVID-19 Vaccine ( season) 2024 10/06/2023, 04/16/2023, 11/01/2022, Additional history exists Influenza Vaccine (#1) 2024 , 10/06/2023, 09/30/2022, Additional history exists Dental Oral Exam 01/31/2025 07/31/2024, , 12/12/2022, Additional history exists Dental Prophylaxis 01/31/2025 07/31/2024, 1 04/03/2023, 07/06/2023, Additional history exists Tobacco Screening 07/31/2025 07/31/2024 Dental X-Ray: Bitewings 08/01/2025 08/01/19 25, 07/31/2024, 02/01/2024, Additional history exists Mammogram 01/10/2026 01/11/2024, 01/11/2024 DTaP/Tdap/Td Vaccines (3 - Td or Tdap) 12/06/2026 12/06/2016, 09/11/2006 Dental X-Ray: Full Mouth 08/02/2027 025, 02/23/2017, 12/29/2006, Additional history exists Hepatitis B Vaccines Completed 12/13/2016, 07/07/2016, 06/09/2016 Pneumococcal Vaccine: 50+ Years Completed 07/05/2019, 01/09/2018 RSV Patients and Patients Aged 60 years or older Completed 09/30/2022 HIB Vaccines Aged Out No longer eligi [...] patient's age to complete this topic Meningococcal Vaccine Aged Out No ry hemant eligible based on patient's age to complete this topic RSV under 20 months Aged Out No longe r eligible based on patient's age to complete this topic Rotavirus Vaccines Aged Out No longer eligible based on patient's age to complete this topic Procedures Procedure Name Priority Date/Time Associated Diagnosis Comments INTRAORAL - COMPLETE SERIES OF RADIOGRAPHIC IMAGES Routine 07/31/2024 2:00 PM EDT ORAL HYGIENE INSTRUCTIONS Routine 2024 2:00 PM EDT BITEWINGS - 4 RADIOGRAPHIC IMAGES Routine 07/31/2024 2:00 PM EDT Full PROPHYLAXIS - ADULT Routine 025 2:00 PM EDT PERIODIC ORAL EVALUATION - ESTABLISHED PATIENT Routine 07/31/2024 2:00 PM EDT from Last 3 Months Insurance [employer] PPO [place] [address] Care Teams Investment Banking Associate Relationship Specialty Start Date End Date Darrell Moore Unassigned PCP - General Family Medicine 06/06/22
--- OUTSIDE RECORDS SUMMARY | 2024-09-30 15:28 | XMS_ITS | Encounter Summary ---
Author Organization [facility] Address [address] [place] [address] Care Team Providers Care Drill Press Operator Helper Name Role Phone Alicia Rayo DO Primary Care Provider Unavaila Lin Crowe MD Primary Care Provider +1 [phone] Kandis Lan MD Unavailable Tim Newton DO Unavailable Unavailable Reason for Visit * Reason Onset Date Comments Provider Call Back 06/17/2022 Encounter Details Date Type Department Care Team Description 06/17/2022 Telephone Gastroenterology - [address] [place] [address] Fernando Cleaning PA-C Provider Call [...] encounter Miscellaneous Notes * Telephone Encounter - Missy Hook - 07/11/2022 11:45 AM EDT Patient calling has some questions regarding liquid gaviscon, please call back * Telephone Encounter - Chey Stern M.A. - 07/07/2022 4:20 PM EDT Spoke with the Patient today made her aware of what Fernando recommends. I did also let the Patient knowat this point we have done all the works that can be done, so Fernando did say to let the patient know she will no longer need to be seen by the Gastroenterology department, Patient said she would still like to come into the office to see Floridalma. Floridalma can you please review and advise if Patient should st ill be seen in the office by us. Please advise * Telephone Encounter - Fernando Cleaning PA-C - 07/06/2022 11:11 AM EDT If pain comes back, she can take liquid gaviscon or mylanta to coat the esophagus. 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 Currently not on anything for her anxiety. At this point, she can be discharged from our care and she should direct her questions to her PCP. * Telephone Encounter - Chey Stern M.A. - 07/06/2022 9:11 AM EDT I called and spoke to the patient, I believe she has so many questions she should have a office visit. Patient woud like to know what she can do if the pain in her esophagus comes back and what can she take, the Hycosamine she states is for abdominal cramping that is not were I have the pain, she said the pain is in her esophagus and goes under her breast. She is scared to eat and is losing more weight. Sucrafate upsets her stomach and she does take Mylanta as well. She went for speech therapy yesterday, they told her since food is not getting stuck they do not feel this will benefit her, She did say they made her a follow up appoinment on July 15. PCP prescribed her with fish oil to take daily. Please advise * Telephone Encounter - Adelia Waller - 07/05/2022 3:48 PM EDT Patient came into office, requesting call back. * Telephone Encounter - Chey Stern M.A. - 07/01/2022 3:04 PM EDT Called Patient left a message to call the office * Telephone Encounter - Adelia Waller - 07/01/2022 9:08 AM EDT Patient calling back again, also has additional now about fish oil pill now that pcp prescribed. * Telephone Encounter - Renata Atkinson - 06/28/2022 1:54 PM EDT Patient calling back again, please see below. * Telephone Encounter - Missy Hook - 06/27/2022 8:53 AM EDT Patient calling in, would like to discuss EGD she has done last week. She says the last 2 weeks shehasnt been eating as much and lost more weight, she says there wasn't anything found on EGD but is still having the pain. * Telephone Encounter - Fernando Cleaning PA-C - 06/20/2022 10:07 AM EDT I suggest liquid maalox, mylanta or gaviscon for now until she has the EGD I am not recommending the oxy She can take tylenol, not ibuprofen * Telephone Encounter - Chey Stern M.A. - 06/20/2022 9:55 AM EDT I spoke with the Patient she stated its the pain in her esophagus, she did say she has sulcrafate but that does cause her stomach cramping. She also has Ibuprofen and oxycodone she can take should she take this ? She did say Mylanta helps her somewhat. Please advise thank you * Telephone Encounter - Alis Martinez - 06/17/2022 4:02 PM EDT The patient is calling asking if she were to have more episodes of pain what she should do. documented in this encounter Plan of Treatment Not on file documented as of this encounter Visit Diagnoses Not on filedocumented in this encounter Care Teams Drill Press Operator Helper Relationship Specialty Start Date End Date Alicia Rayo DO PCP - General Internal Medicine 06/04/21 07/23/23 Lin Eubanks MD [address] [place] [address] PCP - General Internal Medicine 07/24/23 Kandis Lan MD [address] [place] [address] Endocrinology 11/07/23 Tim Newton DO [address] [place] [address] Referring Physician Physiatry 11/07/23 víctor heard Specialist Gastroenterology 11/07/23 [facility] urology Specialist Urology 11/07/23 documented as of this encounter
--- OUTSIDE RECORDS SUMMARY | 2024-09-30 15:28 | XMS_ITS | Encounter Summary ---
Author Organization [facility] Address [address] [place] [address] Care Team Providers Care Racetrack Steward Name Role Phone Alicia Rayo DO Primary Care Provider Unavaila Lin Crowe MD Primary Care Provider Kandis Lan MD Unavailable Tim Newton DO Unavailable Unavailable Encounter Details Date Type Department Care Team Description 12/27/2021 [facility] [address] [phone] Reanna Tovar MD [address] [place] [address] Social History Tobacco Use Types Packs/Day Years [...] suspected to have Coronavirus/COVID-19? No / Unsure 12/24/2021 11:21 AM EST documented as of this encounter Plan of Treatment Not on file documented as of this encounter Visit Diagnoses Not on filedocumented in this encounter Care Teams Racetrack Steward Relationship Specialty Start Date End Date Alicia Rayo DO PCP - General Internal Medicine 06/04/21 07/23/23 Lin Eubanks MD [address] [place] [address] PCP - General Internal Medicine 07/24/23 Kandis Lan MD [address] [place] [address] Endocrinology 11/07/23 Tim Newton DO [address] [place] [address] Referring Physician Physiatry 11/07/23 víctor heard Specialist Gastroenterology 11/07/23 [facility] urology Specialist Urology 11/07/23 documented as of this encounter
--- OUTSIDE RECORDS SUMMARY | 2024-09-30 15:28 | XMS_ITS | Encounter Summary ---
Author Organization [facility] Address [address] [facility] 7 [place] [address] Care Team Providers Care Industrial Methods Consultant Name Role Phone PcpDarrell Unassigned Primary Care Provider Rachell villagomezailkj Encounter Details Date Type Department Care Team (Latest Contact Info) Description 03/06/2019 Abstract [facility] CONVERSIONS Dental, Provider, DDS Social [...] 10/01/2024 3:00 PM EDT Office Visit [facility] DENTAL [address] [place] [address] Jessica Maldonado LLD [address] [place] [address] 10/22/2024 3:00 PM EDT Office Visit [facility] DENTAL [address] [place] [address] Jessica Maldonado LLD [address] [place] [address] 11/12/2024 3:00 PM EDT Office Visit [facility] DENTAL [address] [place] [address] Jessica Maldonado LLD [address] [place] [address] 02/05/2025 2:00 PM EST Office Visit Darrell [facility] DENTAL [address] [place] [address] Sivakumar Mendieta documented as of this encounter Visit Diagnoses Not on filedocumented in this encounter Care Teams Industrial Methods Consultant Relationship Specialty Start Date End Date PcpDarrell Unassigned PCP - General Family Medicine 06/06/22 documented as of this encounter
--- OUTSIDE RECORDS SUMMARY | 2024-09-30 15:28 | XMS_ITS | Encounter Summary ---
Author Organization [facility] Address [address] [place] [address] Care Team Providers Care Bridge/Structure Inspection Team Leader Name Role Phone Alicia Rayo DO Primary Care Provider Unavaila Lin Crowe MD Primary Care Provider [phone] Kandis Lan MD Unavailable Tmi Newton DO Unavailable Unavailable Encounter Details Date Type Department Care Team Description 01/19/2022 Orders Only Gastroenterology - [address] [place] [address] Fernando Cleaning, PACrow Chronic RUQ pain Social History Tobacco Use Types Packs/Day Years [...] suspected to have Coronavirus/COVID-19? No / Unsure 01/06/2022 1:48 PM EST documented as of this encounter Progress Notes * China Bates - 01/24/2022 10:00 AM EST Pt informed documented in this encounter Plan of Treatment Not on file documented as of this encounter Procedures Procedure Name Priority Date/Time Associated Diagnosis Comments HEPATOBILIARY SYST IMAGING INCLUDING GALLBLADDER CHG Routine 01/19/2022 Chronic RUQ pain documented in this encounter Results * HEPATOBILIARY SYST IMAGING INCLUDING GALLBLADDER CHG (01/19/2022) Cam Francescchase PA-C NUCLEAR documented in this encounter Visit Diagnoses Diagnosis Chronic RUQ pain Abdominal pain, right upper quadrant documented in this encounter Care Teams Bridge/Structure Inspection Team Leader Relationship Specialty Start Date End Date Alicia Rayo DO PCP - General Internal Medicine 06/04/21 07/23/23 Lin Eubanks MD [address] [place] [address] PCP - General Internal Medicine 07/24/23 Kandis Lan MD [address] [place] [address] Endocrinology 11/07/23 Tim Newton DO [address] [place] [address] Referring Physician Physiatry 11/07/23 víctor heard Specialist Gastroenterology 11/07/23 [facility] urology Specialist Urology 11/07/23 documented as of this encounter
--- OUTSIDE RECORDS SUMMARY | 2024-09-30 15:28 | XMS_ITS | Encounter Summary ---
Author Organization [facility] Address [address] [facility] 7 [place] [address] Care Team Providers Care Field Sales Consultant Name Role Phone PcpDarrell Unassigned Primary Care Provider Rachell villagomezailkj Encounter Details Date Type Department Care Team (Latest Contact Info) Description 05/13/2021 Abstract [facility] CONVERSIONS Dental, Provider, DDS Social [...] Description 10/01/2024 3:00 PM EDT Office Visit [facility] DENTAL [address] [place] [address] Jessica Maldonado LLD [address] [place] [address] 10/22/2024 3:00 PM EDT Office Visit [facility] DENTAL [address] [place] [address] Jessica Maldonado LLD [address] [place] [address] 11/12/2024 3:00 PM EDT Office Visit [facility] DENTAL [address] [place] [address] Jessica Maldonado LLD [address] [place] [address] 02/05/2025 2:00 PM EST Office Visit Darrell [facility] DENTAL [address] [place] [address] Sivakumar Mendieta documented as of this encounter Visit Diagnoses Not on filedocumented in this encounter Care Teams Field Sales Consultant Relationship Specialty Start Date End Date PcpDarrell Unassigned PCP - General Family Medicine 06/06/22 documented as of this encounter
--- OUTSIDE RECORDS SUMMARY | 2024-09-30 15:28 | XMS_ITS | Encounter Summary ---
Author Organization [facility] Address [address] [place] [address] Care Team Providers Care Nozzle Cement Sprayer Helper Name Role Phone Lin Eubanks MD Primary Care Provider [phone] Kandis Lan MD Unavailable Tim Newton DO Unavailable Unavailable Reason for Visit * Reason Onset Date Comments TEST RESULTS 11/09/2023 Encounter Details Date Type Department Care Team Description 11/09/2023 Telephone Adult Medicine - [place] [address] [place] [address] Lin Eubanks MD [address] [place] [address] TEST RESULTS Social History Tobacco Use Types [...] encounter Miscellaneous Notes * Telephone Encounter - Leigh Roman - 11/10/2023 9:35 AM EDT ERROR * Telephone Encounter - Sanam Brothers - 11/09/2023 3:50 PM EDT Inform patient: ANY URGENT OR ABNORMAL RESULTS WIILL RESULT IN A CALL BACK TO THE PATIENT [place]. Type of test: :Lab Date test was performed: 11/07/2023 Where was the test performed: [facility] Who ordered this test?: Lin Eubanks MD Is the doctor here today?: NO Can the message wait until the doctor returns?: YES IF PATIENT'S PCP IS NOT IN INSTRUCT PATIENT THAT THEY WILL RECEIVE A CALL BACK WHEN THE PCP IS IN THE OFFICE NEXT. documented in this encounter Plan of Treatment Not on file documented as of this encounter Visit Diagnoses Not on filedocumented in this encounter Care Teams Nozzle Cement Sprayer Helper Relationship Specialty Start Date End Date Lin Eubanks MD [address] [place] [address] PCP - General Internal Medicine 07/24/23 Kandis Lan MD [address] [place] [address] Endocrinology 11/07/23 Tim Newton DO [address] [place] [address] Referring Physician Physiatry 11/07/23 víctor heard Specialist Gastroenterology 11/07/23 [facility] urology Specialist Urology 11/07/23 documented as of this encounter
--- OUTSIDE RECORDS SUMMARY | 2024-09-30 15:28 | XMS_ITS | Encounter Summary ---
Author Organization [facility] Address [address] [place] [address] Care Team Providers Care Log Stacker Operator Name Role Phone Alicia Rayo DO Primary Care Provider Unavaila Lin Crowe MD Primary Care Provider [phone] Kandis Lan MD Unavailable Tim Newton DO Unavailable Unavailable Encounter Details Date Type Department Care Team Description 03/03/2022 Hospital Medical Records [address] [place] [address] Leatha Deras NP Social History Tobacco Use Types Packs/Day [...] Date/Time Associated Diagnosis Comments OUTSIDE EKG Routine 03/03/2022 OUTSIDE PLAIN FILM Routine 03/03/2022 documented in this encounter Results * OUTSIDE PLAIN FILM (03/03/2022) Provider Default RADIOLOGY * OUTSIDE EKG (03/03/2022) Provider Default CARDIOLOGY documented in this encounter Visit Diagnoses Not on filedocumented in this encounter Care Teams Log Stacker Operator Relationship Specialty Start Date End Date Alicia Rayo DO PCP - General Internal Medicine 06/04/21 07/23/23 Lin Eubanks MD [address] [place] [address] PCP - General Internal Medicine 07/24/23 Kandis Lan MD [address] [place] [address] Endocrinology 11/07/23 Tim Newton DO [address] [place] [address] Referring Physician Physiatry 11/07/23 víctor heard Specialist Gastroenterology 11/07/23 [facility] urology Specialist Urology 11/07/23 documented as of this encounter
--- OUTSIDE RECORDS SUMMARY | 2024-09-30 15:28 | XMS_ITS | Encounter Summary ---
Author Organization [facility] Address [address] [place] [address] Care Team Providers Care Reference Investigator Name Role Phone Alicia Rayo DO Primary Care Provider Unavaila Lin Crowe MD Primary Care Provider [phone] Kandis Lan MD Unavailable Tim Newton DO Unavailable Unavailable Reason for Visit * Reason Onset Date Comments TEST RESULTS 03/16/2022 Encounter Details Date Type Department Care Team Description 03/16/2022 Telephone Adult Medicine - [address] [address] Alicia Rayo DO TEST RESULTS Social History [...] suspected to have Coronavirus/COVID-19? No / Unsure 03/14/2022 1:22 PM EST documented as of this encounter Miscellaneous Notes * Telephone Encounter - Sanam Brothers - 03/16/2022 12:31 PM EST Inform patient: ANY URGENT OR ABNORMAL RESULTS WIILL RESULT IN A CALL BACK TO THE PATIENT [place]. Type of test: :Lab Date test was performed: 03/14/2022 Where was the test performed: [facility] Who ordered this test?: Alicia Rayo Is the doctor here today?: YES Can the message wait until the doctor returns?: NO IF PATIENT'S PCP IS NOT IN INSTRUCT PATIENT THAT THEY WILL RECEIVE A CALL BACK WHEN THE PCP IS IN THE OFFICE NEXT. documented in this encounter Plan of Treatment Not on file documented as of this encounter Visit Diagnoses Not on filedocumented in this encounter Care Teams Reference Investigator Relationship Specialty Start Date End Date Alicia Rayo DO PCP - General Internal Medicine 06/04/21 07/23/23 Lin Eubanks MD [address] [place] [address] PCP - General Internal Medicine 07/24/23 Kandis Lan MD [address] [place] [address] Endocrinology 11/07/23 Tim Newton DO [address] [place] [address] Referring Physician Physiatry 11/07/23 víctor heard Specialist Gastroenterology 11/07/23 [facility] urology Specialist Urology 11/07/23 documented as of this encounter
--- OUTSIDE RECORDS SUMMARY | 2024-09-30 15:28 | XMS_ITS | Encounter Summary ---
Author Organization [facility] Address [address] [place] [address] Care Team Providers Care Material Requirements Worker Name Role Phone Alicia Rayo DO Primary Care Provider Unavaila Lin Crowe MD Primary Care Provider [phone] Kandis Lan MD Unavailable Tim Newton DO Unavailable Unavailable Reason for Visit * Reason Comments E-prescribe Rx Request Encounter Details Date Type Department Care Team Description 06/01/2022 Refill Gastroenterology [address] [place] [address] Fernando Cleaning PA-C E-prescribe Rx [...] Miscellaneous Notes * Telephone Encounter - Imani Haley - 06/02/2022 8:52 AM EDT JOANNE: 04/01/22 08/22/22 upcoming appointment 90 Day supply documented in this encounter Plan of Treatment Not on file documented as of this encounter Visit Diagnoses Not on filedocumented in this encounter Care Teams Material Requirements Worker Relationship Specialty Start Date End Date Alicia Rayo DO PCP - General Internal Medicine 06/04/21 07/23/23 Lin Eubanks MD [address] [place] [address] PCP - General Internal Medicine 07/24/23 Kandis Lan MD [address] [place] [address] Endocrinology 11/07/23 Tim Newton DO [address] [place] [address] Referring Physician Physiatry 11/07/23 víctor heard Specialist Gastroenterology 11/07/23 [facility] urology Specialist Urology 11/07/23 documented as of this encounter
--- OUTSIDE RECORDS SUMMARY | 2024-09-30 15:28 | XMS_ITS | Encounter Summary ---
Author Organization [facility] Address [address] [place] [address] Care Team Providers Care Gizzard Skin Remover Name Role Phone Bobbi Walton MD Primary Care Provider Unavaila Chetna Ortiz MD Primary Care Provide r Unavailable Alicia Rayo DO Primary Care Provider Unavaila Lin Crowe MD Primary Care Provider [phone] Kandis Lan MD Unavailable Tim Newton DO Unavailable Unavailable Encounter Details Date Type Department Care Team Description 08/26/2019 Orders Only Radiology - [address] [address] Bobbi Walton MD Social History Tobacco Use [...] on filedocumented in this encounter Care Teams Gizzard Skin Remover Relationship Specialty Start Date End Date Bobbi Walton MD PCP - General Internal Medicine 12/19/14 05/05/20 Chetna Coats MD PCP - General Internal Medicine 05/06/20 06/03/21 Alicia Rayo DO PCP - General Internal Medicine 06/04/21 07/23/23 Lin Eubanks MD [address] [place] [address] PCP - General Internal Medicine 07/24/23 Kandis Lan MD [address] [place] [address] Endocrinology 11/07/23 Tim Newton DO [address] [place] [address] Referring Physician Physiatry 11/07/23 víctor heard Specialist Gastroenterology 11/07/23 [facility] urology Specialist Urology 11/07/23 documented as of this encounter
== END 2024-09-30 14:58 | disposition home or self-care (01) ==
LOC: HO.HSM 14:04
PROVIDERS: PCP Student in an Organized Health Care Education/Training Program; Visit Provider Registered Nurse
DX: G31.84 Mild cognitive impairment of uncertain or unknown etiology (principal); G44.209 Tension-type headache, unspecified, not intractable
CPT/HCPCS: 99214

== ENCOUNTER → 2024-09-30 14:03 | Outpatient (BNVA) | payer MEDICARE, SELFPAY | PROVIDERS: PCP Student in an Organized Health Care Education/Training Program; Visit Provider Registered Nurse | DX: G44.209 Tension-type headache, unspecified, not intractable (principal); G31.84 Mild cognitive impairment of uncertain or unknown etiology | CPT/HCPCS: 99212 ==

== ENCOUNTER 2025-01-14 14:56 | Outpatient (AMB) | payer MEDICARE, SELFPAY ==
--- OUTSIDE RECORDS SUMMARY | 2025-01-10 14:00 | XMS_ITS | Encounter Summary ---
Author Organization [employer] Address [address] [facility] 7t [place] [address] Care Team Providers Care Network Developer Name Role Phone Unavailable Primary Care Provider Unavailabl e Encounter Details Date Type Department Care Team (Late st Contact Info) Description 01/10/2025 2:00 PM EST Office Visit [facility] DENTAL [address] [place] [address] Narayan Kaur Jr., DMD [address] [place] [address] Social History Tobacco Use Types Packs/Day Years Used Date Smoking Tobacco: Never Smokeless Tobacco: Never Alcohol Use Standard Drinks/Week Comments Never 0 (1 standard drink = 0.6 oz pur e alcohol) Comments Unknown Sex and Gender Information Value Date Recorded Sex Assigned at Female 05/24/2022 3:34 PM EDT Legal Sex Female 5:35 PM EDT Gender Identity Female 05/24/2022 3:34 PM EDT Sexual Orientation Choose not to disclose 2022 3:34 PM EDT documented as of this encounter Last Filed Vital Signs Vital Sign Reading Time Taken Comments Blood Pressure 121/63 01/10/2025 2:14 PM EST Pulse 54 01/10/2025 2:14 PM EST Temperature - - Respiratory Rate - - Oxygen Saturation - - Inhaled Oxygen Concentration - - Weight - - Height - - Body Mass Index - - documented in this encounter Progress Notes * Narayan Kaur Jr., DMD - 01/10/2025 2:00 PM EST Composite Taoism Tooth/Teeth Treated: #12-F very large abfraction Anesthesia: No Local anesthesia administered: Preparation: Existing restorative material removed. Caries excavation completed using a combination of high-speed burs, slow-speed handpiece with burs Matrix Placement: A matrix band was placed and stabilized with interproximal wedges between the tooth and adjacent teeth. Taoism Protocol: Prep was rinsed, dried, final expense agent applied and light-cured for 20 seconds. Composite placed in multiple increments and each layer light-cured. Matrix band removed. Floss used to verify interproximal contact and marginal integrity. #12 blade used to remove excess flash from embrasures. Taoism finished and polished. Occlusion: Occlusion verified using AccuFilm. High spots adjusted until ideal occlusal naik were evident throughout the quadrant. Patient confirmed no high feeling on centric or excursive movements. Post-Operative Instructions: Patient advised that residual numbness may impact occlusal assessment. Instructed to contact the office immediately if yarsani feels high once anesthesia wears off. Post-op complications discussed, including the potential for transient sensitivity or the rare possibility of requiring endodontic therapy if pulpal irritation occurs. Patient advised to monitor for signs of irreversible pulpitis and call the office if symptoms develop. Patient Interaction: Patient expressed satisfaction with the yarsani. All questions regarding the procedure, prognosis, and aftercare were addressed. Prognosis: Good. documented in this encounter Plan of Treatment Upcoming Encounters Date Type Department Care Team (Late st Contact Info) Description 02/05/2025 2:00 PM EST Office Visit [facility] DENTAL [address] [place] [phone] Sivakumar Mendieta documented as of this encounter Procedures Procedure Name Priority Date/Time Associated Diagnosis Comments 12 B RESIN-BASED COMPOSITE - 1 SURF, POSTERIOR Routine 01/10/2025 2:00 PM EST documented in this encounter Visit Diagnoses Not on filedocumented in this encounter
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
--- OUTSIDE RECORDS SUMMARY | 2025-01-14 21:14 | XMS_ITS | Encounter Summary ---
Author Organization [facility] Address [address] 7 [place] [address] Care Team Providers Care Brickmason Supervisor Name Role Phone PcpDarrell Unassigned Primary Care Provider U navailable Encounter Details Date Type Department Care Team [...] Description 02/05/2025 2:00 PM EST Office Visit Darrell [facility] [address] [place] [address] Sivakumar Mendieta documented as of this encounter Visit Diagnoses Not on filedocumented in this encounter Care Teams Brickmason Supervisor Relationship Specialty Start Date End Date Darrell Mooressrafy PCP - General Family Medicine 06/06/22 01/06/25 documented as of this encounter
--- OUTSIDE RECORDS SUMMARY | 2025-01-14 21:15 | XMS_ITS | Encounter Summary ---
Author Organization [employer] [facility] Address [address] [place] [address] Care Team Providers Care Clinical Informatics Educator Name Role Phone PcpDarrell Unassigned Primary Care [...] Visit Darrell [facility] [address] [place] [address] Sivakumar Mendieta documented as of this encounter Visit Diagnoses Not on filedocumented in this encounter Care Teams Clinical Informatics Educator Relationship Specialty Start Date End Date Darrell Mooressrafy PCP - General Family Medicine 06/06/22 01/06/25 documented as of this encounter
--- OUTSIDE RECORDS SUMMARY | 2025-01-14 21:15 | XMS_ITS | Clinical Summary ---
Author Organization [employer] Address [address] [facility] [address] 7t [place] [address] Care Team Providers Care Business Support Manager Name Role Phone Unavailable Primary Care Provider Unavailabl e Allergies Active Allergy Reactions Criticality Noted Date [...] Active Fish Oil-Cholecalcifero l (Fish Oil-Vitamin D) [id number] MG-UNIT capsule Take by mouth. Activ e [...] Encounters Date Type Department Care Team Description 01/10/2025 2:00 PM EST Office Visit [facility] [address] [place] [id number] Narayan Kaur Jr., DMD 01/06/2025 3:00 PM EST Office Visit [facility] [address] [place] [id number] Jessica Maldonado LLD 12/30/2024 10:30 AM EST Office Visit [address] [address] Jessica Maldonado LLD 12/12/2024 3:00 PM EST Office Visit [facility] [address] [place] [id number] Jessica Maldonado LLD 11/12/2024 3:00 PM EDT Office Visit [address] [address] Jessica Maldonado LLD from Last 3 Months Immunizations Immunization Administration [...] Description 02/05/2025 2:00 PM EST Office Visit [facility] [address] [place] [id number] Sivakumar Mendieta Health Maintenance Due Date Last Done Comments CT Colonography 1953 Colonoscopy 1953 Colorectal Cancer Screening 1953 Depression Screening 1953 FIT DNA/Cologuard 1953 FIT 1953 FOBT 1953 Lipid Panel 1953 SDOH Screening 1953 Sigmoidoscopy 1953 Alcohol/Substance Use Screening 1965 Hepatitis C Screening 1971 Hepatitis A Vaccines (1 of 2 - Risk 2-dose series) 01/04/1972 Zoster Vaccines (2 of 3) 03/05/2013 01/08/2013 Dental Oral Exam 01/31/2025 07/31/2024, , 12/12/2022, Additional history exists Dental Prophylaxis 01/31/2025 07/31/2024, 1 04/03/2023, 07/06/2023, Additional history exists COVID-19 Vaccine ( season) 2025 10/31/2024, 10/06/2023, 04/16/2023, Additional history exists Tobacco Screening 07/31/2025 07/31/2024 [...] Aged 60 years or older Completed 09/30/2022 Influenza Vaccine Completed 10/07/2024, , 10/06/2023, Additional history exists HIB Vaccines Aged Out No longer eligi [...] SURF, POSTERIOR Routine 01/10/2025 2:00 PM EST 18,19,20,30,31 MANDIBULAR PARTIAL DENTURE - CAST METAL FRAMEWORK WITH RESIN DENTURE BASES (INCLUDING RETENTIVE/CLASPING MATERIALS, RESTS AND TEETH) Routine 01/06/2025 3:00 PM EST 12 INTRAORAL - PERIAPICAL FIRST RADIOGRAPHIC IMAGE Routine 12/30/2024 10:30 AM EST 12 LIMITED ORAL EVALUATION - PROBLEM FOCUSED Routine 12/30/2024 10:30 AM EST 12 DO AMALGAM FILLING Routine 12/30/2024 12:00 AM EST WAX TRY IN Routine 12/12/2024 3:00 PM EST DIGITAL SCAN FOR DENTURES Routine 2024 3:00 PM EDT Full PROPHYLAXIS - ADULT Routine 025 2:00 PM EDT INTRAORAL - COMPLETE SERIES OF RADIOGRAPHIC IMAGES Routine 07/31/2024 2:00 PM EDT BITEWINGS - 4 RADIOGRAPHIC IMAGES Routine 07/31/2024 2:00 PM EDT PERIODIC ORAL EVALUATION - ESTABLISHED PATIENT Routine 07/31/2024 2:00 PM EDT from Last 3 Months or Most Recently Relevant to Health Maintenance Insurance [employer] PPO DENTAL - [employer] DENTAL
--- OUTSIDE RECORDS SUMMARY | 2025-01-14 21:15 | XMS_ITS | Encounter Summary ---
Author Organization [facility] [facility] Address [address] 7 [place] [address] Care Team Providers Care Sales Representative Graphic Art Name Role Phone PcpDarrell Unassigned Primary Care [...] 02/05/2025 2:00 PM EST Office Visit Darrell [facility] [address] [place] [address] Sivakumar Mendieta documented as of this encounter Visit Diagnoses Not on filedocumented in this encounter Care Teams Sales Representative Graphic Art Relationship Specialty Start Date End Date Darrell Mooressrafy PCP - General Family Medicine 06/06/22 01/06/25 documented as of this encounter
--- OUTSIDE RECORDS SUMMARY | 2025-01-14 21:15 | XMS_ITS | Encounter Summary ---
Author Organization [employer] [facility] Address [address] [facility] 7 [place] [address] Care Team Providers Care Regulatory Consultant Name Role Phone PcpDarrell Unassigned Primary [...] PM EST Office Visit Darrell [facility] [address] [place] [address] Sivakumar Mendieta documented as of this encounter Visit Diagnoses Not on filedocumented in this encounter Care Teams Regulatory Consultant Relationship Specialty Start Date End Date Darrell Mooressrafy PCP - General Family Medicine 06/06/22 01/06/25 documented as of this encounter
--- OUTSIDE RECORDS SUMMARY | 2025-01-14 21:15 | XMS_ITS | Encounter Summary ---
Author Organization [employer] [facility] Address [address] 7 [place] [address] Care Team Providers Care Laundry Worker Name Role Phone PcpDarrell Unassigned Primary Care [...] 02/05/2025 2:00 PM EST Office Visit Darrell [facility] [address] [place] [address] Sivakumar Mendieta documented as of this encounter Visit Diagnoses Not on filedocumented in this encounter Care Teams Laundry Worker Relationship Specialty Start Date End Date Darrell Mooressrafy PCP - General Family Medicine 06/06/22 01/06/25 documented as of this encounter
--- OUTSIDE RECORDS SUMMARY | 2025-01-14 21:15 | XMS_ITS | Encounter Summary ---
Author Organization [employer] [facility] Address [address] [facility] [address] [facility] 7 [place] [address] Care Team Providers Care Ironing Worker Name Role Phone PcpDarrell Unassigned Primary [...] 02/05/2025 2:00 PM EST Office Visit Darrell [facility] [address] [place] [address] Sivakumar Mendieta documented as of this encounter Visit Diagnoses Not on filedocumented in this encounter Care Teams Ironing Worker Relationship Specialty Start Date End Date Darrell Mooressrafy PCP - General Family Medicine 06/06/22 01/06/25 documented as of this encounter
--- OUTSIDE RECORDS SUMMARY | 2025-01-14 21:15 | XMS_ITS | Encounter Summary ---
Author Organization [employer] [facility] Address [address] 7 [place] [address] Care Team Providers Care Temporary Office Assistant Name Role Phone PcpDarrell Unassigned Primary Care [...] 02/05/2025 2:00 PM EST Office Visit Darrell [facility] [address] [place] [address] Sivakumar Mendieta documented as of this encounter Visit Diagnoses Not on filedocumented in this encounter Care Teams Temporary Office Assistant Relationship Specialty Start Date End Date Darrell Mooressrafy PCP - General Family Medicine 06/06/22 01/06/25 documented as of this encounter
== END 2025-01-14 15:39 | disposition home or self-care (01) ==
LOC: HO.HSM 14:57
PROVIDERS: PCP Student in an Organized Health Care Education/Training Program; Referring Provider Family Medicine; Visit Provider Registered Nurse
DX: G31.84 Mild cognitive impairment of uncertain or unknown etiology (principal); G44.209 Tension-type headache, unspecified, not intractable; F41.9 Anxiety disorder, unspecified
CPT/HCPCS: 99214

== ENCOUNTER → 2025-01-14 14:56 | Outpatient (BNVA) | payer MEDICARE, SELFPAY | PROVIDERS: PCP Student in an Organized Health Care Education/Training Program; Referring Provider Family Medicine; Visit Provider Registered Nurse | DX: G31.84 Mild cognitive impairment of uncertain or unknown etiology (principal); G44.209 Tension-type headache, unspecified, not intractable; F41.9 Anxiety disorder, unspecified; Z79.899 Other long term (current) drug therapy | CPT/HCPCS: 99212 ==